=== PATIENT | male | born 1950 | race Caucasian/White ===

== ENCOUNTER 2020-07-11 09:22 | Outpatient (REF) | payer SELFPAY ==
[2020-07-11 11:32] LABS: Glucose Urine UA NEG (NEG); Leukocyte Esterase Urine NEG (NEG); Nitrite Urine NEG (NEG); PH 5.5 (5.0-8.0); Specific Gravity - Urine 1.025 (1.005-1.025); Urine Blood NEG (NEG); Urine Ketones NEG (NEG); Urine Protein NEG (NEG-TRACE)
[2020-07-11 11:43] LABS: Basophils Absolute Auto 0.1 X10*3/uL (0.0-0.2); Basophils Percent Auto 0.8 % (0-2); Eosinophils Absolute Auto 0.1 X10*3/uL (0.0-0.4); Eosinophils Percent Auto 1.7 % (0-4); Hematocrit 47.4 % (42-52); Hemoglobin 15.2 g/dl (14.0-18.0); Imm Gran Abs Auto 0.02 X10*3/uL (0.00-0.03); Imm Gran Pct Auto 0.3 % (0.0-0.4); Lymphocytes Absolute Auto 3.7 X10*3/uL (1.2-4.9); Lymphocytes Percent Auto 56.8 % (20-40); MANUAL DIFF FLAG SCAN; Mean Corpuscular HGB Conc 32.1 g/dl (31.0-36.0); Mean Corpuscular Volume 90.5 fL (80-98); Mean Platelet Volume 10.6 fL (9.4-12.4); Monocytes Absolute Auto 0.4 X10*3/uL (0.1-1.2); Monocytes Percent Auto 5.8 % (2-11); Neutrophils Absolute Auto 2.3 X10*3/uL (2.0-8.3); Neutrophils Percent Auto 34.6 % (45-73); Platelet Count 187 X10*3/uL (160-400); Red Blood Count 5.24 X10*6/uL (4.60-5.80); Red Cell Distribution Width 13.5 % (11.0-16.0); SCAN SMEAR FLAG 1; White Blood Count 6.6 X10*3/uL (4.8-10.8)
[2020-07-11 11:52] LABS: Appearance Urine CLEAR; Color Urine YELLOW
[2020-07-11 12:07] LABS: Alanine Aminotransferase 34 U/L (0-40); Albumin Level 4.2 g/dL (3.5-5.0); Alkaline Phosphatase 61 U/L (39-117); Anion Gap 14 (12-20); Aspartate Amino Transferase 20 U/L (5-37); Bilirubin Total 0.4 mg/dL (0.0-1.0); Blood Urea Nitrogen 19 mg/dL (9-16); Calcium 8.9 mg/dL (8.4-10.2); Carbon Dioxide 24 mmol/L (22-29); Chloride 109 mmol/L (96-108); Cholesterol 188 mg/dL; Estimated Glomerular Filt Rate > 60; Glucose Fasting 105 mg/dL (60-99); HDL Cholesterol 39 mg/dL; LDL Cholesterol Calculated 129 mg/dl; Potassium 4.4 mmol/L (3.3-5.1); Sodium 143 mmol/L (135-145); Triglycerides 102 mg/dL
[2020-07-11 12:20] LABS: SLIDE REVIEW VERIFIED
[2020-07-11 12:24] LABS: RBC Urine 0 /HPF (0); WBC Urine 0 /HPF (0-4)
[2020-07-11 12:33] LABS: Prostate Specific Antigen Scr 6.08 ng/mL (<0.05-4.0)
== END 2020-07-11 09:23 | disposition home or self-care (01) ==
LOC: HO.HMGCLDS 09:22
PROVIDERS: PCP Internal Medicine; Visit Provider Internal Medicine
DX: Z00.00 Encounter for general adult medical examination without abnormal findings (principal); Z12.5 Encounter for screening for malignant neoplasm of prostate
CPT/HCPCS: 36415; 80053; 80061; 81001; 84153; 85025

== ENCOUNTER → 2020-09-01 13:54 | Outpatient (BNVA) | payer OTHER, SELFPAY | PROVIDERS: PCP Internal Medicine; Visit Provider Urology | DX: R97.20 Elevated prostate specific antigen [PSA] (principal); N40.0 Benign prostatic hyperplasia without lower urinary tract symptoms; M54.30 Sciatica, unspecified side | CPT/HCPCS: 99202 ==

== ENCOUNTER 2020-09-06 14:14 | Outpatient (REF) | payer OTHER, SELFPAY ==
--- NOTE | ~2020-09-06 | US_ITS ---
EXAMINATION: US PELVIS LIMITED (BLADDER) CLINICAL INFORMATION: Weak urinary stream. Increased PSA, BPH. COMPARISON: None. TECHNIQUE: Real-time imaging of the bladder. FINDINGS: BLADDER: Well distended and normal. Bilateral ureteral jets are demonstrated. Prevoid bladder volume is 348 mL. Postvoid bladder volume is 47 mL. There is a trabeculated bladder wall appearance. PROSTATE: Solid prostate gland is enlarged measuring 4.0 x 3.9 x 4.1 cm. US/US bladder IMPRESSION: Small postvoid residual bladder volume. The bladder wall is trabeculated likely secondary to moderate prostate enlargement. Normal bilateral ureteral jets are seen.
== END 2020-09-06 14:15 | disposition home or self-care (01) ==
LOC: HO.HMGCX 14:14
PROVIDERS: PCP Internal Medicine; Visit Provider Urology
DX: N40.1 Benign prostatic hyperplasia with lower urinary tract symptoms (principal); R39.12 Poor urinary stream
CPT/HCPCS: 76857

== ENCOUNTER 2021-04-02 08:59 | Inpatient (IN) | payer MEDICARE, OTHER, SELFPAY ==
[2021-04-02] VITALS (15 sets, daily range): BP systolic 132–186; BP diastolic 68–100; PULSE 62–120; RESP 14–31; TEMP 36.8–38; O2SAT 90–98; BMI 34.8
--- NOTE | 2021-04-02 | ECG_ITS ---
Test Reason : stroke Blood Pressure : / mmHG Vent. Rate : 116 BPM Atrial Rate : 088 BPM P-R Int : 246 ms QRS Dur : 090 ms QT Int : 390 ms P-R-T Axes : 056 -07 -39 degrees QTc Int : 542 ms Sinus rhythm with frequent PVCs and run of VT towards the end of tracing Anteroseptal infarct (cited on or before 02-APR-2021) Prolonged QT Abnormal ECG When compared with ECG of 02-APR-2021 09:36, No significant changes seen Referred By: Michael Patel Electronically Signed By:Darwin Valdez
--- NOTE | ~2021-04-02 | CT_ITS ---
EXAMINATION: CTA OF THE HEAD AND NECK CLINICAL INFORMATION: Left-sided weakness. COMPARISON: Head CT dated 04/02/2021. TECHNIQUE: Test bolus sequences followed by intravenous administration 70 mL of Omnipaque 350. Helical imaging was performed in the axial plane from the mediastinum to the skull vertex. Delayed postcontrast imaging of the head was also performed. The data was processed at the x ray technologist's workstation for generation of MIP sequences. Three-dimensional volume rendered reformatted images were also generated at an offline 3-D workstation. Stenoses are assessed in accordance with NASCET criteria unless otherwise indicated. This CT examination was performed using dose optimization techniques as appropriate, variously including the following: *Automated exposure control *Adjustment of mA and/or kV according to patient size (this includes techniques or standardized protocols for targeted exams where dose is matched to indication/reason for exam; i.e. extremities or head) *Use of iterative reconstruction technique DLP: 2452 mGy-cm. FINDINGS: CT head: There is a chronic-appearing infarct in the anterolateral left frontal lobe at the mid to high convexity with encephalomalacia. A small area of low-density change in the right frontal centrum semiovale represents a focal age-indeterminate infarct. Small scattered lacunar infarcts in the external capsules. Mild chronic white matter microangiopathy. There is no evidence of an acute intracranial hemorrhage. No abnormal mass effect or midline shift is seen. No extra-axial fluid collections are identified. Generalized parenchymal volume loss without evidence of hydrocephalus. There is no abnormal enhancement. The osseous structures and soft tissues are normal. The mastoid air cells and visualized portions of the paranasal sinuses are well aerated. CTA neck: The imaged aortic arch and origins of the great vessels are normal. The common carotid arteries are widely patent. The carotid bifurcations are patent with mild atherosclerotic wall calcifications at the origin of the left ICA. The cervical internal carotid arteries are otherwise normal. The vertebral arteries opacify normally and are of normal caliber. Multinodular thyroid gland evident with mild asymmetric enlargement of the left thyroid lobe. Moderate multilevel cervical spondylosis noted with a rightward spinal curvature. The imaged portions of the lungs are clear. CTA head: The intradural vertebral arteries and basilar artery are normal. The posterior cerebral arteries are widely patent. The internal carotid arteries are of normal caliber. 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 The INGE and MCA vascular complexes bilaterally are otherwise normal. The venous sinuses opacify normally. CT/CT angio head neck stroke IMPRESSION: No vessel occlusion or significant stenosis in the cervical or intracranial vasculature. 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 Chronic-appearing infarct in the anterolateral left frontal lobe. Age-indeterminate focal infarct in the right frontal centrum semiovale. No abnormal enhancement. Moderate cervical spondylosis. Multinodular thyroid gland with mild enlargement of the left thyroid lobe. Imaging findings reported to Dr. Patel at 10:07 AM on 04/02/2021.
--- NOTE | ~2021-04-02 | CT_ITS ---
EXAMINATION: CT CERVICAL SPINE WITHOUT CONTRAST CLINICAL INFORMATION: Neck pain after fall COMPARISON: None TECHNIQUE: Helical imaging of the cervical spine was performed in the axial plane with generation of sagittal and coronal reformatted This CT examination was performed using dose optimization techniques as appropriate, variously including the following: *Automated exposure control *Adjustment of mA and/or kV according to patient size (this includes techniques or standardized protocols for targeted exams where dose is matched to indication/reason for exam; i.e. extremities or head) *Use of iterative reconstruction technique DLP: 732 mGy-cm FINDINGS: There is no acute fracture or dislocation. Vertebral body heights are maintained. There is diffuse intervertebral disc space narrowing, most prominent at C5-C6 and C6-C7. There are endplate osteophytes at all levels of the cervical spine. There is diffuse facet arthropathy, most prominent at C3-C4. The paravertebral soft tissues are normal. The lung apices are clear. CT/CT cervical spine wo con IMPRESSION: Moderate degenerative changes of the cervical spine. No acute fracture or dislocation.
--- NOTE | ~2021-04-02 | XR_ITS ---
EXAMINATION: XR CHEST CLINICAL INFORMATION: Stroke. COMPARISON: None TECHNIQUE: Frontal view of the chest was obtained. FINDINGS: No significant abnormality is noted involving the heart, lungs, mediastinum, bony thorax or soft tissues. XR/XR chest 1V IMPRESSION: Unremarkable examination.
--- NOTE | ~2021-04-02 | MR_ITS ---
EXAMINATION: MR BRAIN WITHOUT CONTRAST CLINICAL INFORMATION: Cerebrovascular accident status post TPA. COMPARISON: CTA head and neck from 04/02/2021. TECHNIQUE: MRI of the brain was obtained using routine sequences without contrast. FINDINGS: There are regions of restricted diffusion in the right MCA territory involving the right insula, superior aspect of the right temporal lobe, and right frontoparietal lobes including the lateral aspects of the precentral and postcentral gyri. Associated T2 FLAIR hyperintensity. No evidence of acute hemorrhagic products on heme-sensitive imaging. Region of chronic encephalomalacia in the lateral left frontal lobe. Chronic lacunar infarcts of the anterior body of the corpus callosum and the right cerebral hemisphere. Scattered periventricular and deep white matter T2 FLAIR hyperintensities consistent with mild underlying microangiopathy. Proportional prominence of the ventricles and sulcal spaces without evidence of obstructive hydrocephalus. No abnormal mass effect. No midline shift. Normal appearance of the pituitary gland. Normal positioning of the cerebellar tonsils. Normal arterial and venous vascular flow voids are present. Normal, homogeneous marrow signal. Mild mucosal thickening of the paranasal sinuses. Moderate leftward nasal septal deviation. No signal abnormalities within the mastoids. MR/MR head/brain wo con IMPRESSION: 1. Evolving acute infarct of the right MCA territory involving the right insula and right frontal, temporal, and parietal lobes. No evidence of hemorrhagic conversion. 2. Region of chronic encephalomalacia in the left frontal lobe. Chronic lacunar infarcts of the corpus callosum and right cerebellar hemisphere. Mild underlying microangiopathy and generalized cerebral volume loss.
--- NOTE | ~2021-04-02 | NM_ITS ---
Myocardial perfusion study Indication: VT to evaluate for myocardial ischemia Technique: The patient was brought in for a Lexiscan perfusion study on 04/06/2021. Patient performed low-level exercise and was injected 0.4 mg of Lexiscan intravenously. Within a minute of injection, 30 mCi of sestamibi was given intravenously. Images were obtained using the SPECT gamma camera interlaced with the gating device. Images were obtained in supine position. Resting perfusion study was performed on 04/07/2021. Patient was administered 30 mCi of sestamibi intravenously at rest. Images were then obtained in supine position. Images obtained with and without CT attenuation. Total DLP 109 m Images were processed with the software and compared side to side in short axis, horizontal long axis and vertical long axis views. Findings: The stress perfusion study showed non attenuated images show mildly reduced uptake in the basal inferolateral and basal inferior wall of the LV myocardium. Remainder of the LV myocardium is normally perfused. Expected images show normal uptake of radiotracer in all segments of LV myocardium.. The gated study shows normal LV systolic function with calculated LVEF of 66%. LV cavity is normal in size. The gated study shows normal systolic wall thickening and contraction of segments. Resting study shows both attenuated and not attenuated corrected images show normal uptake of radiotracer in all segments of LV myocardium.. Gating at rest reveals normal systolic wall motion with ejection fraction at 57%. The findings are consistent with likely normal myocardial perfusion. NM/NM michael perf SPECT rest & str Impression: 1. Myocardial perfusion imaging study shows likely normal myocardial perfusion 2. Gated LVEF is 66% 3. Transient ischemic dilatation not present EKG is nondiagnostic for ischemia
--- NOTE | ~2021-04-02 | CT_ITS ---
EXAMINATION: CT HEAD WITHOUT CONTRAST (STROKE PROTOCOL) CLINICAL INFORMATION: Stroke protocol. COMPARISON: None TECHNIQUE: Contiguous axial imaging was performed from the skull base to vertex without intravenous administration of contrast. This CT examination was performed using dose optimization techniques as appropriate, variously including the following: *Automated exposure control *Adjustment of mA and/or kV according to patient size (this includes techniques or standardized protocols for targeted exams where dose is matched to indication/reason for exam; i.e. extremities or head) *Use of iterative reconstruction technique DLP: 714 2 mGy-cm FINDINGS: There is no intracranial hemorrhage, hematoma, or extra-axial fluid collection. The ventricles are normal in size. There is no hydrocephalus, edema, or mass effect. Linear hypodense lesion is noted at the right periventricular white matter (27:6). Larger linear hypodensity involving both cortex as well as the white matter is also noted at the left frontal lobe (25:6), consistent with infarction of indeterminate age. The calvarium appears intact. There is no pneumocephalus or orbital emphysema. The visualized sinuses and middle ears and mastoid air cells show no significant mucosal thickening. There are no air-fluid levels. CT/CT head for stroke IMPRESSION: 1. No CT evidence of any acute intracranial hemorrhage. 2. Linear hypodense lesion is noted at the right periventricular white matter, of indeterminate etiology. 3. Large hypodensity involving both cortex as well as the white matter is also noted at the left frontal lobe, consistent with infarction of indeterminate age. There are no prior studies available for comparison. This critical result was discussed with Dr. Patel at 9:17 AM on 04/02/2021. It was ascertained that the content and urgency of the report was understood at the time of direct communication.
--- NOTE | 2021-04-02 09:04 | ECG_ITS ---
Test Reason : STROKE Blood Pressure : / mmHG Vent. Rate : 133 BPM Atrial Rate : 090 BPM P-R Int : 176 ms QRS Dur : 090 ms QT Int : 374 ms P-R-T Axes : 060 025 -16 degrees QTc Int : 556 ms Sinus rhythm alternating with runs of ventricular tachycardia Prolonged QT Abnormal ECG No previous ECGs available Referred By: Michael Patel Electronically Signed By:Darwin Valdez
--- NOTE | 2021-04-02 09:17 | PC.NURSE ---
@ 09:15 DR FRANKLIN REQUESTS CALL OUT TO THE [facility] STROKE TEAM/NEURO INTERVENTION SATURNINO ANSWERS, TAKES PT INFO, TAKES CALL BACK NUMBER AND SAYS SHE WILL CALL US BACK
--- NOTE | 2021-04-02 09:20 | PC.NURSE ---
@ 09:20 RETURN CALL FROM WILMAN OF [facility] PT TX LINE ASKING TO SPEAK WITH DR RIGOBERTO FRANKLIN TAKES OVER CALL RIGHT AWAY
[2021-04-02 09:21] LABS: MANUAL DIFF FLAG NO
[2021-04-02 09:23] LABS: Hemoglobin 15.5 g/dl (14.0-18.0); SCAN SMEAR FLAG 1
[2021-04-02 09:24] LABS: INTERNATIONAL NORM RATIO 1.1 (0.9-1.1)
--- NOTE | 2021-04-02 09:25 | PC.NURSE ---
@ 3803 RETURN CALL FROM EDWINA OF THE [facility] PT TX LINE WITH ACCEPTING MD DR RUIZ IS ACCEPTING THIS PT TO THE [facility] ER DR FRANKLIN ALREADY AWARE OF THIS
[2021-04-02 09:27] LABS: Partial Thromboplastin Time 28.5 SEC (24.1-38.0)
[2021-04-02 09:30] LABS: Basophils Absolute Auto 0.1 X10*3/uL (0.0-0.2); Basophils Percent Auto 0.5 % (0-2); Eosinophils Absolute Auto 0.2 X10*3/uL (0.0-0.4); Eosinophils Percent Auto 1.4 % (0-4); Hematocrit 45.8 % (42.0-52.0); Imm Gran Abs Auto 0.02 X10*3/uL (0.00-0.03); Imm Gran Pct Auto 0.2 % (0.0-0.4); Mean Corpuscular HGB Conc 33.8 g/dl (31.0-36.0); Mean Corpuscular Volume 88.8 fL (80.0-98.0); Monocytes Absolute Auto 0.6 X10*3/uL (0.1-1.2); Monocytes Percent Auto 5.6 % (2-11); Neutrophils Percent Auto 27.1 % (45-73); Platelet Count 183 X10*3/uL (160-400); Red Blood Count 5.16 X10*6/uL (4.60-5.80); Red Cell Distribution Width 12.9 % (11.0-16.0)
[2021-04-02 09:33] LABS: Lymphocytes Absolute Auto 7.2 X10*3/uL (1.2-4.9); Stroke Lab Use COMPLETE
--- NOTE | 2021-04-02 09:38 | PC.NURSE ---
@ 09:37 DR FRANKLIN REQUESTS CALL OUT TO [facility] [place] NEUROLOGY SERVICE ANSWERS, MADE AWARE OF STROKE PROTOCOL , TAKES PT INFO,HOSPITAL INFO AND SAYS THEY WILL PAGE THE ONCALL
[2021-04-02 09:42] LABS: Alanine Aminotransferase 22 U/L (0-40); Alkaline Phosphatase 60 U/L (39-117); Anion Gap 14 (12-20); Aspartate Amino Transferase 14 U/L (5-37); Bilirubin Total 0.9 mg/dL (0.0-1.0); Blood Urea Nitrogen 18 mg/dL (9-16); Calcium 9.2 mg/dL (8.4-10.2); Carbon Dioxide 22 mmol/L (22-29); Chloride 109 mmol/L (96-108); Estimated Glomerular Filt Rate 50; Glucose Random 134 mg/dL (60-115); Lymphocytes Percent Auto 65.2 % (20-40); Sodium 141 mmol/L (135-145); Total Protein 6.8 g/dL (6.5-8.0)
[2021-04-02 09:45] LABS: Troponin-I High Sensitivity 8.4 ng/L (<3.5-35.0)
--- NOTE | 2021-04-02 09:53 | PC.NURSE ---
@09:52 patient and family refuse transfer to [facility] and sign emtdarrick/king page [address] barbosa
--- NOTE | 2021-04-02 10:11 | PC.NURSE ---
[facility] PT TX LINE CALL TO MAKE THEM AWARE OF PTS REFUSAL TO BE TX TO [facility] @ THIS TIME EDWINA ANSWERS AND SAYS SHE WILL MAKE THE ACCEPTING MD AWARE ON HER END
--- NOTE | 2021-04-02 10:14 | PC.NURSE ---
Pt presented to ed with stroke, ct done labs done iv established, tpa started pt with episodes of v tach pt refuses to go to [facility], intensiviest and cardiology involved
[2021-04-02] MEDS: iohexoL 350 MG/ML 100 ML INFUS..BTL 70 ML IV (10:18)
--- NOTE | 2021-04-02 10:28 | ED_ITS ---
HPI - Neuro Symptoms/Deficit General Chief Complaint: Stroke Stated Complaint: STROKE ALERT,FALL IN SHOWER,AMS PER Time Seen by Provider: 04/02/21 09:02 Source: family and EMS Mode of arrival: EMS History of Present Illness HPI Narrative: This is a 71 years old healthy patient who about 08:00 o'clock in the morning was getting ready for [facility] fell and was aphasic with left-sided weakness, his sister called 911 and was transported the by the EMS. Onset (ago): minute(s) (45) Timing confirmed by: family member (sister) Location: speech, right face, left arm, left leg and ataxia History of same: Yes Severity: severe Quality: weak Relieving factors: none Exacerbating factors: none Context: sudden onset Associated symptoms: denies other symptoms Related Data Home Medications Medication Instructions Recorded Confirmed aspirin 81 mg capsule 81 mg PO DAILY 04/02/21 04/02/21 Previous Rx's Medication Instructions Recorded finasteride 5 mg tablet 5 mg PO DAILY 90 Days #90 tab 09/01/20 Allergies Allergy/AdvReac Type Severity Reaction Status Date / Time No Known Allergies Allergy Verified 09/01/20 13:58 Review of Systems Verdana 4l Constitutional: Verdana 4d Constitutional: Verdana 4d Verdana 4d Reports no additional constitutional complaints Verdana 4l Eyes: Verdana 4d Verdana 4d Eyes: Verdana 4d Reports no additional eye complaints Verdana 4l Cardiovascular: Verdana 4d Cardiovascular: Verdana 4d Verdana 4d Reports no additional cardiovascular complaints Verdana 4l Respiratory: Verdana 4d Verdana 4d Respiratory: Verdana 4d Reports no additional respiratory complaints Verdana 4l Musculoskeletal: Verdana 4d Musculoskeletal: Verdana 4d Verdana 4d Reports no additional musculoskeletal complaints [facility] Past Medical History Medical History Annual physical exam Elevated PSA Sciatica Family History Family History Father No problems noted. Mother Stroke Social History Social History Household Members: Family Housing: House Do you presently have visiting nurse or other home services: No Alcohol intake: current Alcohol intake frequency: holidays/special occasions only Patient Tobacco Use Status: Former Tobacco user Tobacco use type: Cigarette e-Cigarette/Vaping Use: Former Use Physical Exam Verdana 4l Vital Signs: Verdana 4d Verdana 4d Vital Signs: Verdana 4d Verdana 4Bd Last Vital Signs Verdana 4d Education Specialist New 4d Education Specialist New 4d Temp 98.2 F 04/02/21 09:45 Education Specialist New 4d Pulse 82 04/02/21 14:00 Education Specialist New 4d Resp 16 04/02/21 14:00 BP 186/90 H 04/02/21 14:00 Pulse Ox 94 04/02/21 14:00 BMI result Body Mass Index 34.8 Const: General: cooperative HENMT: Other: facial droop Ears: hearing grossly normal bilaterally General nose exam: Normal external nose present Throat: Yes posterior oropharynx normal Neck: Neck: Yes normal visual inspection, Yes full ROM and Yes no lymphadenopathy Thyroid: Thyroid normal Chest: Chest palpation & inspection: normal inspection of the chest Resp: Effort & Inspection: normal respiratory effort Cardio: Jugular venous distension: no JVD Rate: regular rate Rhythm: regular rhythm GI: Inspection: Yes normal to inspection Palpation (GI): Soft to palpation, not firm, nontender and no guarding Percussion: Yes normal to percussion Skin: General skin exam: no rashes or lesions noted Neuro: Other: Rt gaze, left hemyparesis ,moderate aphasia Extrem: Other: abrasion dorsal aspect left thumb noted with skin tear Course Course Course Narrative: I discussed with the patient and sees the risk benefit of tPA, he is within the window, patient gave me verbal consent for tPA ;tPA was infused, I think the fall is relative risk no absolute contraindication in the absence of bleed.In this case the benefit will outweight the risks Reevaluation(s) Reevaluation #1: On the monitor he was noted to be in ventricular tachycardia, this was discussed with Dr. Key bedside. For now we will hold meds per Dr Key [facility] - Neuro Symptoms/Deficit Lab Data Result diagrams: 04/02/21 09:15 04/02/21 09:15 Labs: Lab Results 04/02/21 04/02/21 04/02/21 Range/Units 09:15 09:15 09:15 WBC 11.0 H (4.8-10.8) X10*3/uL RBC 5.16 (4.60-5.80) X10*6/uL Hgb 15.5 (14.0-18.0) g/dl Hct 45.8 (42.0-52.0) % MCV 88.8 (80.0-98.0) fL MCH 30.0 (27.0-33.0) pg MCHC 33.8 (31.0-36.0) g/dl RDW 12.9 (11.0-16.0) % Plt Count 183 (160-400) X10*3/uL MPV 10.0 (9.4-12.4) fL Immature Gran % (Auto) 0.2 (0.0-0.4) % Neut % (Auto) 27.1 L (45-73) % Lymph % (Auto) 65.2 H (20-40) % Barron % (Auto) 5.6 (2-11) % Eos % (Auto) 1.4 (0-4) % Baso % (Auto) 0.5 (0-2) % Lymph # (Auto) 7.2 H (1.2-4.9) X10*3/uL Barron # (Auto) 0.6 (0.1-1.2) X10*3/uL Eos # (Auto) 0.2 (0.0-0.4) X10*3/uL Baso # (Auto) 0.1 (0.0-0.2) X10*3/uL Abs Immat Gran (auto) 0.02 (0.00-0.03) X10*3/uL Absolute Neuts (auto) 3.0 (2.0-8.3) x10*3/uL Absolute Nucleated RBC 0.000 (0.0-0.012) X10*3/uL Nucleated RBC % (auto) 0.0 (0.0-0.2) /100WBC PT 12.0 (9.9-13.0) SEC INR 1.1 (0.9-1.1) APTT 28.5 (24.1-38.0) SEC Sodium 141 (135-145) mmol/L Potassium 4.0 (3.3-5.1) mmol/L Chloride 109 H (96-108) mmol/L Carbon Dioxide 22 (22-29) mmol/L Anion Gap 14 (12-20) BUN 18 H (9-16) mg/dL Creatinine 1.40 (0.5-1.4) mg/dL Estim Creat Clear Calc TNP Estimated GFR 50 Random Glucose 134 H (60-115) mg/dL Calcium 9.2 (8.4-10.2) mg/dL Magnesium 1.9 (1.6-2.6) mg/dL Total Bilirubin 0.9 (0.0-1.0) mg/dL AST 14 (5-37) U/L ALT 22 (0-40) U/L Alkaline Phosphatase 60 (39-117) U/L Troponin I High Sens (<3.5-35.0) ng/L Total Protein 6.8 (6.5-8.0) g/dL Albumin 4.0 (3.5-5.0) g/dL 04/02/21 Range/Units 09:15 WBC (4.8-10.8) X10*3/uL RBC (4.60-5.80) X10*6/uL Hgb (14.0-18.0) g/dl Hct (42.0-52.0) % MCV (80.0-98.0) fL MCH (27.0-33.0) pg MCHC (31.0-36.0) g/dl RDW (11.0-16.0) % Plt Count (160-400) X10*3/uL MPV (9.4-12.4) fL Immature Gran % (Auto) (0.0-0.4) % Neut % (Auto) (45-73) % Lymph % (Auto) (20-40) % Barron % (Auto) (2-11) % Eos % (Auto) (0-4) % Baso % (Auto) (0-2) % Lymph # (Auto) (1.2-4.9) X10*3/uL Barron # (Auto) (0.1-1.2) X10*3/uL Eos # (Auto) (0.0-0.4) X10*3/uL Baso # (Auto) (0.0-0.2) X10*3/uL Abs Immat Gran (auto) (0.00-0.03) X10*3/uL Absolute Neuts (auto) (2.0-8.3) x10*3/uL Absolute Nucleated RBC (0.0-0.012) X10*3/uL Nucleated RBC % (auto) (0.0-0.2) /100WBC PT (9.9-13.0) SEC INR (0.9-1.1) APTT (24.1-38.0) SEC Sodium (135-145) mmol/L Potassium (3.3-5.1) mmol/L Chloride (96-108) mmol/L Carbon Dioxide (22-29) mmol/L Anion Gap (12-20) BUN (9-16) mg/dL Creatinine (0.5-1.4) mg/dL Estim Creat Clear Calc Estimated GFR Random Glucose (60-115) mg/dL Calcium (8.4-10.2) mg/dL Magnesium (1.6-2.6) mg/dL Total Bilirubin (0.0-1.0) mg/dL AST (5-37) U/L ALT (0-40) U/L Alkaline Phosphatase (39-117) U/L Troponin I High Sens 8.4 (<3.5-35.0) ng/L Total Protein (6.5-8.0) g/dL Albumin (3.5-5.0) g/dL Imaging Data CT scan - head: Radiologist's impression: white matter is also noted at the left frontal lobe (25:6), consistent with infarction of indeterminate age. ?The calvarium appears intact. There is no pneumocephalus or orbital emphysema.? The visualized sinuses and middle ears and mastoid air cells show no significant mucosal thickening. There are no air-fluid levels. CT/CT head for stroke IMPRESSION: ? 1. No CT evidence of any acute intracranial hemorrhage. 2. Linear hypodense lesion is noted at the right periventricular white matter, of indeterminate etiology. 3. Large hypodensity involving both cortex as well as the white matter is also noted at the left frontal lobe, consistent with infarction of indeterminate age. There are no prior studies available for comparison. ? This critical result was discussed with Dr. Patel at 9:17 AM on 04/02/2021. It was ascertained that the content and urgency of the report was understood at the time of direct communication. Dictated By: ROBBY KEATING MD Signed By: <Electronically signed by ROBBY KEATING MD in OV> 04/02/21921 DD/ 0 TD/TT:? Small Order Cutter: DOROTA ECG Data Attestation: I personally reviewed and interpreted this ECG as follows: Pacemaker model: Ainus with 8 beats of Vtach non sustained NIH Stroke Scale Level of Consciousness: Alert Level of Consciousness Questions: Answers both questions correctly Level of Consciousness Commands: Performs both tasks correctly Best Gaze: Forced deviation Visual: Complete hemianopia Facial Palsy: Complete paralysis Motor Arm (Right): No drift Motor Arm (Left): Drift Motor Leg (Right): No drift Motor Leg (Left): Drift Limb Ataxia: Present in one limb Sensory: Mild to moderate sensory loss Best Language: Mild to moderate aphasia Dysarthia: Mild to moderate dysarthria Extinction and Inattention: Visual, tactile, auditory, spatial, or personal inattention Score: 14 Critical Care Time Critical Care Time Critical Care Time: Yes Total Critical Care Time: 60 Attestation: TPA Administrations speaking with family consultat,ICU attending Discharge Plan Discharge Clinical Impression: Cerebrovascular accident, Ventricular tachycardia Patient Disposition: Admitted As Inpatient Interventions: Admission Worksheet (ED) Last Done: 04/02/21 14:00 Discharge Date/Time: 04/02/21 14:01
--- NOTE | 2021-04-02 10:32 | PC.NURSE ---
tpa complete, pt appears to have neuro improvement, remains to have episodes of v tach
--- NOTE | 2021-04-02 10:52 | PHA.MEDREC ---
Pharmacy Consult ? Medication Reconciliation Pharmacy has completed the medication reconciliation. Spoke with sister and patient. He hasn't taken medications in a long time. Last filled 09/01/20 of 90 days
[2021-04-02 10:53] LABS: Magnesium 1.9 mg/dL (1.6-2.6)
--- NOTE | 2021-04-02 11:23 | P.HPCC_ITS ---
History of Present Illness Date of Service: 04/02/21 Attending physician on admission: Soledad Key Chief Complaint: Fall with weakness 71-year-old male nonhypertensive nondiabetic preparing for latter-day this morning suddenly fell noted to have facial asymmetry left-sided weakness and was aphasic brought to the hospital within a good time frame work CT scan was negative and the case was discussed with Neurology DrBenjamin In other words Dr. Blanchard and was decided to go ahead and give him tPA despite the minor head trauma There is a question of a left-sided field cut he has got the eye deviation towards the right left upper and left lower extremity weakness are are associated NIH score but at least 13 and by our approximation the no seems to be a fair sized territory yet on the CTA nothing was seen and tracing this all back down to the to the aortic root there is no evidence of of dissection Of course placed on the monitor and early asymptomatic we note that he is having prolonged runs of nonsustained ventricular tachycardia very frequently lasting up to approximately 6 seconds at a time with rates of about 150 give her take clearly the P-wave sequence marches through and there there is a fusion beat or 2 indicating that this is did indeed V-tach no chest discomfort is associated with any of this and a bedside echo that I had done shows globally normal systolic wall motion of the left ventricle without segmental wall motion abnormality and no primary valve or pericardial disease and his right heart appears to be normal as well He is not hypertrophic what needs to be ruled out of course is underlying ischemic disease but I do know if this is just simply serendipitous or if there is adeno truly some etiologic relationship appear between the nonsustained ventricular tachycardia and this CVA in evolution Review of Systems Verdana 4l Review of Systems: Yes all other systems are reviewed and Verdana 4d are negative [facility] Past Medical History Medical History Annual physical exam Elevated PSA Sciatica Family History Family History Father No problems noted. Mother Stroke Social History Social History Alcohol intake: current Alcohol intake frequency: holidays/special occasions only Advance Directives: No Advance Directives Information Provided: No Meds Allergies Allergy/AdvReac Type Severity Reaction Status Date / Time No Known Allergies Allergy Verified 09/01/20 13:58 Active Medications: Current Medications Dextrose (Dextrose 50 % 25 Gm/50 Ml Syringe) 25 gm IVPUSH Q30M PRN PRN Reason: Nursing Actions in Insulin Infusion Protocol Insulin Human Regular (Myxredlin) 100 unit in 100 mls @ 0 mls/hr IVCONT .Q0M CLAY; Protocol Lactated Ringer's (Lr) 1,000 mls @ 100 mls/hr IVCONT .Q10H CLAY Home Medications Medication Instructions Recorded Confirmed Last Taken Type aspirin 81 mg 81 mg PO DAILY 04/02/21 04/02/21 Unknown History capsule Physical Exam Verdana 4l Vital Signs: Verdana 4d Verdana 4d Vital Signs: Verdana 4d Verdana 4Bd Last Vital Signs Verdana 4d Material Manager New 4d Material Manager New 4d Temp 98.2 F 04/02/21 09:45 Material Manager New 4d Pulse 85 04/02/21 10:00 Material Manager New 4d Resp 16 04/02/21 10:00 BP 135/88 04/02/21 10:00 Pulse Ox 98 04/02/21 10:00 BMI result Body Mass Index 34.8 Vital signs stable and there are no ischemic ST-T changes on his EKG Improving weakness on the left side and some restored ability to communicate Lungs clear Abdomen soft no organomegaly No peripheral edema skin is intact no acrocyanosis Results Labs CBC and Chem 7: 04/02/21 09:15 04/02/21 09:15 Labs: Laboratory Results - last 24 hr 04/02/21 04/02/21 04/02/21 09:15 09:15 09:15 MCV 88.8 MCH 30.0 MCHC 33.8 RDW 12.9 Plt Count 183 MPV 10.0 Immature Gran % (Auto) 0.2 Neut % (Auto) 27.1 L Lymph % (Auto) 65.2 H Carson % (Auto) 5.6 Eos % (Auto) 1.4 Baso % (Auto) 0.5 Lymph # (Auto) 7.2 H Carson # (Auto) 0.6 Eos # (Auto) 0.2 Baso # (Auto) 0.1 Abs Immat Gran (auto) 0.02 Absolute Neuts (auto) 3.0 Absolute Nucleated RBC 0.000 Nucleated RBC % (auto) 0.0 PT 12.0 INR 1.1 APTT 28.5 Anion Gap 14 Estim Creat Clear Calc TNP Estimated GFR 50 Random Glucose 134 H Calcium 9.2 Magnesium 1.9 Total Bilirubin 0.9 AST 14 ALT 22 Alkaline Phosphatase 60 Total Protein 6.8 Albumin 4.0 Imaging Radiologist's Impressions: Impressions Head CT 04/02/21 09:11 IMPRESSION: 1. No CT evidence of any acute intracranial hemorrhage. 2. Linear hypodense lesion is noted at the right periventricular white matter, of indeterminate etiology. 3. Large hypodensity involving both cortex as well as the white matter is also noted at the left frontal lobe, consistent with infarction of indeterminate age. There are no prior studies available for comparison. This critical result was discussed with Dr. Patel at 9:17 AM on 04/02/2021. It was ascertained that the content and urgency of the report was understood at the time of direct communication. Head/Neck CTA 04/02/21 09:37 IMPRESSION: No vessel occlusion or significant stenosis in the cervical or intracranial vasculature. 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 Chronic-appearing infarct in the anterolateral left frontal lobe. Age-indeterminate focal infarct in the right frontal centrum semiovale. No abnormal enhancement. Moderate cervical spondylosis. Multinodular thyroid gland with mild enlargement of the left thyroid lobe. Imaging findings reported to Dr. Patel at 10:07 AM on 04/02/2021. Cervical Spine CT 04/02/21 10:09 IMPRESSION: Moderate degenerative changes of the cervical spine. No acute fracture or dislocation. Chest X-Ray 04/02/21 10:30 IMPRESSION: Unremarkable examination. Assessment and Plan (1) Cerebrovascular accident: Status: Acute (2) Ventricular tachycardia: Status: Acute (3) BPH (benign prostatic hyperplasia): Status: Acute (4) Elevated PSA: Status: Acute Plan Will have Cardiology involved in the morning to rule out underlying ischemic disease so we can prognosticate with a nonsustained V-tach If there is underlying ischemia than there is an anatomic derangement that certainly the note makes risk for sudden demise much higher but if there is no evidence of underlying etiologic disease and it certainly did in 0 improves the prognosis for the nonsustained V-tach and will probably reserve treatment for symptoms Will observe in the ICU status post tPA infusion
[2021-04-02 11:41] LABS: COVID-19 Test Negative (Negative)
[2021-04-02 12:00] LABS: Erythrocyte Sedimentation Rate 4 MM/HR (0-15)
--- NOTE | 2021-04-02 12:47 | P.CNNE_ITS ---
History of Present Illness Data of Consult Service Date: 04/02/21 Primary Care Provider: Yamilka Guallpa MD [facility] Reason for consult: stroke 71 years old man who came to hospital with acute onset of left-sided weakness. This was witnessed by family when he was [facility]. There was no acute headache nausea or vomiting. In emergency room he was evaluated and clinical impression was that he was suffering from a right frontal infarct with right gaze deviation and left hemiparesis. Language was intact. After workup he was treated with intravenous tPA and I see him after that. His strength or weakness has significantly changed with improvement. He still had right gaze deviation. he was Urdu speaking and into was performed with the help of his sister. He was not in any distress. Review of Systems Verdana 4l Review of Systems: Verdana 4d No recent cold or Verdana 4d flu-like illness headache or neck pain Verdana 4d PMFSH Past Medical History Medical History Annual physical exam Elevated PSA Sciatica Family History Family History Father No problems noted. Mother Stroke Social History Social History Alcohol intake: current Alcohol intake frequency: holidays/special occasions only Advance Directives: No Advance Directives Information Provided: No Meds Allergies Allergy/AdvReac Type Severity Reaction Status Date / Time No Known Allergies Allergy Verified 09/01/20 13:58 Active Medications: Current Medications Lactated Ringer's (Lr) 1,000 mls @ 100 mls/hr IVCONT .Q10H [facility] Home Medications Medication Instructions Recorded Confirmed Last Taken Type aspirin 81 mg 81 mg PO DAILY 04/02/21 04/02/21 Unknown History capsule Physical Exam Verdana 4l Vital Signs: Verdana 4d Verdana 4d Vital Signs: Verdana 4d Verdana 4Bd Last Vital Signs Verdana 4d Aluminum Shingle Roofer New 4d Aluminum Shingle Roofer New 4d Temp 98.2 F 04/02/21 09:45 Aluminum Shingle Roofer New 4d Pulse 85 04/02/21 10:00 Aluminum Shingle Roofer New 4d Resp 16 04/02/21 10:00 BP 135/88 04/02/21 10:00 Pulse Ox 98 04/02/21 10:00 BMI result Body Mass Index 34.8 Neuro: Other: alert and awake with normal spontaneity of speech fluency comprehension and slightly anxious affect. He was following commands and answering questions appropriately. Pupils were round reactive to light with the right gaze deviati on. Visual field or probably intact. There was minimal left-sided facial flatness. He was able to lift his arm against gravity up to 90 degrees and also leg. left plantar was equivocal and there was mild spasticity in left leg. Results Labs CBC & Chem 7: 04/02/21 09:15 04/02/21 09:15 Labs: Short CBC 04/02/21 Range/Units 09:15 WBC 11.0 H (4.8-10.8) X10*3/uL Hgb 15.5 (14.0-18.0) g/dl Hct 45.8 (42.0-52.0) % Plt Count 183 (160-400) X10*3/uL BMP 04/02/21 09:15 Sodium 141 Potassium 4.0 Chloride 109 H Carbon Dioxide 22 BUN 18 H Creatinine 1.40 Calcium 9.2 Liver Function 04/02/21 Range/Units 09:15 Total Bilirubin 0.9 (0.0-1.0) mg/dL AST 14 (5-37) U/L ALT 22 (0-40) U/L Alkaline Phosphatase 60 (39-117) U/L Albumin 4.0 (3.5-5.0) g/dL His noncontrast head CT revealed a chronic left frontal wedge-shaped embolic looking infarct but no definite pathology otherwise. There was suggestion of hyperdensity in right M2 segment. CTA of brain revealed at he knew a saldana of signal and right M2. Right M1 area was slightly prominent and radiologist has suggested 2 mm aneurysm in that area. His EKG revealed ventricular arrhythmia. Assessment and Plan (1) Cerebrovascular accident: Status: Acute 71 years old man with acute onset of left hemiparesis appropriately treated with intravenous tPA with clinical diagnosis of ischemic infarction. His EKG revealed arrhythmias and likely cause of stroke was cardiac source of embolism as he has a chronic left frontal small embolic looking infarct. At this time my recommendation is admission to ICU with tPA protocol and blood pressure management. Blood thinners are avoided for 24 hours but after that I would recommend starting him on anticoagulation but no IV heparin. Cardiology consultation is recommended. Physical therapy and occupational therapy consultations are also recommended. I recommend holding his blood pressure medicines are any medicine that could drop his blood pressure at this time including finasteride. An MRI of brain without contrast is also recommended, which can be done tomorrow. Procedures Date of Service Date of Service: 04/02/21
[2021-04-02] MEDS: Lactated Ringers 1,000 ML 100 ML IVCONT ×2 (13:06→22:38)
--- NOTE | 2021-04-02 17:12 | MHC.STROKE ---
Addendum entered by Oumou Hobbs RN 04/06/21 09:11: FREQUENT VITALS POST TPA-ALTEPLASE RECORDINGS ARE ON THE CHART INCLUDED WITH THE EKG READINGS DUE TO PATIENT HAVING VT. SEE THE SHEETS. SBP 120-160, DBP 80-100. MAP 90-120 RANGE. ALL VITALS DOCUMENTED. Addendum entered by Oumou Hobbs RN 04/03/21 10:48: 10:00 I MET WITH THE PATIENT AND HIS DAUGHTER ERIC THIS MORNING TO PROVIDE STROKE EDUCATION AND ANSWER THEIR QUESTIONS. THE PATIENT DOES UNDERSTAND SOME NICARAGUAN AND THE DAUGHTER DOES UNDERSTAND NICARAGUAN AND SHE ASSISTED WITH REINFORCING SOME OF THE EDUCATION NEEDED. I REVIEWED THE STROKE EDUCATION BOOKLET, WE DISCUSSED HIS INDIVIDUAL RISK FACTORS FOR STROKE, MEDICATIONS, WHY HE GOT TPA-ALTEPLASE, HIS VITAL SIGNS AND NEURO SIGNS. I USED DIAGRAMS AND PICTURES TO HELP EXPLAIN THE STROKE. I REVIEWED THE PLAN OF CARE. HE WILL BE GETTING AN MRI, THE FORM HAS BEEN FAXED TO MRI. I PERFORMED A NURSING SWALLOW SCREEN AND HE PASSED BUT HAD A SLIGHT COUGH AFTER DRINKING FROM THE CUP, NO WET VOICE. DR DRAPER CONSULTED SPEECH FOR DYSPHAGIA, AND APHASIA ASSESSMENT. HE HAS A SIGNIFICANT LEFT DROOP. HE IS COOPERATIVE AND AGREEABLE TO ALL STROKE INTERVENTIONS. WE DISCUSSED THE POSSIBLE NEED FOR ANTICOAGULATION. I ANSWERED ALL THEIR QUESTIONS. I WILL CONTINUE TO FOLLOW. Original Note: EMS PRE-NOTIFIED STROKE ALERT 04/02/21 AT 0854, ARRIVED 0859. EXAMINED BY DR FRANKLIN, ONSET OF LEFT SIDED WEAKNESS AN D FALL IN THE SHOWER, SYMPTOMS 0800, NIHSS = 14, RIGHT GAZE, LEFT HEMIPARESIS FACE, ARM, LEG, APHASIA/DYSARTHRIA, DECREASED SENSATION, NEGLECT. DIRECT TO CT ON EMS STRETCHER. STROKE PROTOCOL ACTIVATED. CT NO BLEED, CTA H/N, TPA ALTEPLASE 80MG ORDERED AT 0924, [id number] = 38 MINUTES, GREATER THAN 30 MINUTES DUE TO RECENT FALL AND CARE TEAM IS DETERMINING ELIGIBILITY, SEE DR DIAZ NOTE, FAILED NURSING SWALLOW SCREEN, NPO. FREQUENT VITAL OBTAINED AND PRINTOUT SHEET ATTACHED TO CHART. SPOKE WITH DR GONZALES REGARDING STROKE TPA GIVEN ORDERS. HE WILL HAVE HANG RIVERA COMPLETE ORDERS WHEN SHE COMES IN. RECOMMEND FREQUENT VITALS AND NEURO SIGNS PER PROTOCOL, ANY CHANGES REPEAT HEAD CT, MRI IN AM OR REPEAT CT HEAD IN AM, CARDIOLOGY CONSULT FOR ARRHYTHMIA, LIPID PANEL, CBC, NPO SPEECH CONSULT, REHAB ASSESSMENT PT,OT, VTE PROPHYLAXIS, STROKE EDUCATION, CASE MANAGEMENT TO ASSESS INSURANCE STATUS. I WILL CONTINUE TO FOLLOW.
[2021-04-02 20:30] LABS: Cholesterol 195 mg/dL; HDL Cholesterol 27 mg/dL; LDL Cholesterol Calculated 140 mg/dl; Triglycerides 142 mg/dL
[2021-04-03] VITALS (17 sets, daily range): BP systolic 118–160; BP diastolic 69–98; PULSE 54–95; RESP 13–35; TEMP 36.9–37.7; O2SAT 91–96; BMI 34.0
--- NOTE | 2021-04-03 | ECG_ITS ---
Test Reason : ekg changes Blood Pressure : / mmHG Vent. Rate : 065 BPM Atrial Rate : 065 BPM P-R Int : 214 ms QRS Dur : 094 ms QT Int : 394 ms P-R-T Axes : 005 -23 002 degrees QTc Int : 409 ms Sinus rhythm with 1st degree A-V block Septal infarct , age undetermined Abnormal ECG No previous ECGs available Referred By: Darwin Valdez Electronically Signed By:Darwin Valdez
[2021-04-03 05:41] LABS: Basophils Absolute Auto 0.1 X10*3/uL (0.0-0.2); Basophils Percent Auto 0.5 % (0-2); Eosinophils Absolute Auto 0.1 X10*3/uL (0.0-0.4); Eosinophils Percent Auto 0.7 % (0-4); Hematocrit 46.1 % (42.0-52.0); Hemoglobin 15.8 g/dl (14.0-18.0); Imm Gran Abs Auto 0.02 X10*3/uL (0.00-0.03); Imm Gran Pct Auto 0.2 % (0.0-0.4); Lymphocytes Absolute Auto 4.6 X10*3/uL (1.2-4.9); Lymphocytes Percent Auto 45.6 % (20-40); MANUAL DIFF FLAG SCAN; Mean Corpuscular HGB Conc 34.3 g/dl (31.0-36.0); Mean Corpuscular Hemoglobin 29.7 pg (27.0-33.0); Mean Corpuscular Volume 86.7 fL (80.0-98.0); Monocytes Absolute Auto 0.7 X10*3/uL (0.1-1.2); Monocytes Percent Auto 6.8 % (2-11); Neutrophils Absolute Auto 4.7 x10*3/uL (2.0-8.3); Neutrophils Percent Auto 46.2 % (45-73); Platelet Count 176 X10*3/uL (160-400); Red Blood Count 5.32 X10*6/uL (4.60-5.80); Red Cell Distribution Width 12.8 % (11.0-16.0); SCAN SMEAR FLAG 1; White Blood Count 10.1 X10*3/uL (4.8-10.8)
[2021-04-03 06:07] LABS: Anion Gap 13 (12-20); Blood Urea Nitrogen 14 mg/dL (9-16); Carbon Dioxide 23 mmol/L (22-29); Chloride 107 mmol/L (96-108); Creatinine Clr Calc Pharmacy 76.5; Estimated Glomerular Filt Rate > 60; Glucose Random 115 mg/dL (60-115); Phosphorus 3.4 mg/dL (2.7-4.5); Potassium 3.8 mmol/L (3.3-5.1); Sodium 139 mmol/L (135-145)
[2021-04-03 06:17] LABS: SLIDE REVIEW VERIFIED
--- NOTE | 2021-04-03 06:28 | PC.NURSE ---
CARE ASSUMED 23:15...AWAKE..ALERT..MAINLY NICARAGUAN SPEAKING...DENIES HEADACHE OR CHEST PAIN...PRASAD...LEFT ARM/HAND REMAIN WEAK BUT ABLE TO LIFT UP OFF BED...REPOSITIONS SELF IN BED...CONTINUES TO FAVOR GAZE TOWARDS THE RIGHT BUT IMPROVED GAZE TOWARDS LEFT...VSS...NSR HR 60'S..NO VENTRICULAR DYSRHYTHMIAS OVERNIGHT...NAPPING INTERMITTANTLY..NO COMPLAINTS
--- NOTE | 2021-04-03 10:06 | P.CONCA_ITS ---
History of Present Illness History of Present Illness Date of Service: 04/03/21 Requesting physician: Jesus Leija Chief complaint: Acute cva, wide complex tachycardia Narrative: 71-year-old gentleman who is presenting with CVA and received tPA. Clinically doing well but was noted to have recurrent runs of wide complex tachycardia on telemetry. He has been asymptomatic and does not call any symptoms. His [place]ian speaking and his sister act as broommaking supervisor. On questioning he said he does not get any chest discomfort when he is ambulating. If he walks a lot then he gets shortness of breath. No dizziness or syncope before. Telemetry reviewed which showed runs of wide complex tachycardia. There are some fusion beats noted on 1 of the strips as well as R on T. electrolytes are okay. Currently stable on telemetry. [facility] Past Medical History Medical History Annual physical exam Elevated PSA Sciatica Family History Family History Father No problems noted. Mother Stroke Social History Social History Household Members: Family Housing: House Do you presently have visiting nurse or other home services: No Alcohol intake: current Alcohol intake frequency: holidays/special occasions only Patient Tobacco Use Status: Former Tobacco user Tobacco use type: Cigarette e-Cigarette/Vaping Use: Former Use Meds Allergies Allergy/AdvReac Type Severity Reaction Status Date / Time No Known Allergies Allergy Verified 09/01/20 13:58 Active Medications: Current Medications Atorvastatin Calcium (Atorvastatin Calcium 40 Mg Tablet) 40 mg PO BEDTIME [facility] Home Medications Medication Instructions Recorded Confirmed Last Taken Type aspirin 81 mg 81 mg PO DAILY 04/02/21 04/02/21 Unknown History capsule Physical Exam Verdana 4l Vital Signs: Verdana 4d Verdana 4d Vital Signs: Verdana 4d Verdana 4Bd Last Vital Signs Verdana 4d Engineering Laboratory Technician New 4d Engineering Laboratory Technician New 4d Temp 98.8 F 04/03/21 08:00 Engineering Laboratory Technician New 4d Pulse 66 04/03/21 09:00 Engineering Laboratory Technician New 4d Resp 17 04/03/21 09:00 BP 129/87 04/03/21 09:00 Pulse Ox 92 04/03/21 09:00 BMI result Body Mass Index 34.0 GENERAL APPEARANCE: in no acute distress, pleasant. NECK: no carotid bruit, no jugular venous distention. SKIN: no suspicious lesions, warm and dry. HEART: no murmurs, regular rate and rhythm. LUNGS: clear to auscultation bilaterally. ABDOMEN: soft, nontender. EXTREMITIES: no edema. PERIPHERAL PULSES: equal. NEUROLOGIC: Left arm power 3 x 5. Facial droop. Objective Labs and Meds Result diagrams: 04/03/21 05:21 04/03/21 05:21 Lab results: Laboratory Results - last 24 hr 04/02/21 04/02/21 04/02/21 09:15 09:15 11:17 WBC RBC Hgb Hct MCV MCH MCHC RDW Plt Count MPV Immature Gran % (Auto) Neut % (Auto) Lymph % (Auto) [place] % (Auto) Eos % (Auto) Baso % (Auto) Lymph # (Auto) [place] # (Auto) Eos # (Auto) Baso # (Auto) Abs Immat Gran (auto) Absolute Neuts (auto) Absolute Nucleated RBC Nucleated RBC % (auto) Smear Tech's Comments Smear Path Review ESR 4 Sodium Potassium Chloride Carbon Dioxide Anion Gap BUN Creatinine Estim Creat Clear Calc Estimated GFR Random Glucose Calcium Phosphorus Magnesium 1.9 Triglycerides Cholesterol LDL Cholesterol, Calc HDL Cholesterol COVID-19 ([facility]) COVID-19 Clin Com 04/02/21 04/02/21 04/03/21 11:17 20:07 05:21 WBC 10.1 RBC 5.32 Hgb 15.8 Hct 46.1 MCV 86.7 MCH 29.7 MCHC 34.3 RDW 12.8 Plt Count 176 MPV 10.0 Immature Gran % (Auto) 0.2 Neut % (Auto) 46.2 Lymph % (Auto) 45.6 H [place] % (Auto) 6.8 Eos % (Auto) 0.7 Baso % (Auto) 0.5 Lymph # (Auto) 4.6 [place] # (Auto) 0.7 Eos # (Auto) 0.1 Baso # (Auto) 0.1 Abs Immat Gran (auto) 0.02 Absolute Neuts (auto) 4.7 Absolute Nucleated RBC 0.000 Nucleated RBC % (auto) 0.0 Smear Tech's Comments VERIFIED Smear Path Review ESR Sodium Potassium Chloride Carbon Dioxide Anion Gap BUN Creatinine Estim Creat Clear Calc Estimated GFR Random Glucose Calcium Phosphorus Magnesium Triglycerides 142 Cholesterol 195 LDL Cholesterol, Calc 140 HDL Cholesterol 27 D COVID-19 ([facility]) Negative COVID-19 Clin Com See Note 04/03/21 05:21 WBC RBC Hgb Hct MCV MCH MCHC RDW Plt Count MPV Immature Gran % (Auto) Neut % (Auto) Lymph % (Auto) [place] % (Auto) Eos % (Auto) Baso % (Auto) Lymph # (Auto) [place] # (Auto) Eos # (Auto) Baso # (Auto) Abs Immat Gran (auto) Absolute Neuts (auto) Absolute Nucleated RBC Nucleated RBC % (auto) Smear Tech's Comments Smear Path Review ESR Sodium 139 Potassium 3.8 Chloride 107 Carbon Dioxide 23 Anion Gap 13 BUN 14 Creatinine 1.07 Estim Creat Clear Calc 76.5 Estimated GFR > 60 Random Glucose 115 Calcium 9.0 Phosphorus 3.4 Magnesium 2.0 Triglycerides Cholesterol LDL Cholesterol, Calc HDL Cholesterol COVID-19 ([facility]) COVID-19 Clin Com Imaging Radiologist's impression: Impressions Head/Neck CTA 04/02/21 09:37 IMPRESSION: No vessel occlusion or significant stenosis in the cervical or intracranial vasculature. 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 Chronic-appearing infarct in the anterolateral left frontal lobe. Age-indeterminate focal infarct in the right frontal centrum semiovale. No abnormal enhancement. Moderate cervical spondylosis. Multinodular thyroid gland with mild enlargement of the left thyroid lobe. Imaging findings reported to Dr. Patel at 10:07 AM on 04/02/2021. Cervical Spine CT 04/02/21 10:09 IMPRESSION: Moderate degenerative changes of the cervical spine. No acute fracture or dislocation. Chest X-Ray 04/02/21 10:30 IMPRESSION: Unremarkable examination. Assessment and Plan (1) Cerebrovascular accident: Status: Acute (2) Ventricular tachycardia: Status: Acute Plan 71-year-old gentleman who is presenting for stroke and received tPA. He has r esidual weakness on the left side. Repeat imaging is pending. He has runs of ventricular tachycardia on telemetry. He has been asymptomatic. Potassium is 3.8 and magnesium is 2. Keep potassium close to 4.5. Will give 1 g magnesium. He clearly has R on T phenomenon on the strips and some fusion beats. I think the likely diagnosis is ventricular tachycardia right now. I will check an EKG right now to assess QT interval and then start him on amiodarone 400 mg 2 times a day. If blood pressure allows and I think we should at 25 mg of Toprol-XL. Will check echocardiogram to assess LV for any structural issues. As he recovers further then we will discuss ischemic evaluation. Please check another set of troponins. Thank you for allowing me to participate in the care of your patient. Please feel free to contact me if you have any questions. Procedures Date of Service Date of Service: 04/03/21
--- NOTE | 2021-04-03 11:36 | MHC.CM.PN ---
Met with pt and his sister Skye with whom he is residing and who interprets for pt as he is German speaking. Per assessment, pt has been staying with his sister for close to a year. He has a and two sons in [place]. Pt sees Yamilka Guallpa as a PCP but does not have medical insurance aside from HSN. Pt has no equipment or services and his sister can assist with anything he needs including transportation. Pt declined completion of HCP as he needs to discuss this with his family back in [place]. Pt is NOT Covid vaccinated having had COVID in 03/2020 and is refusing to be vaccinated at this time. Pt is + CVA with visible hemiparesis and speech deficits. He will likely need some sort of rehab either at his sister's home or in a facility. D/T his lack of payor source, this will be impossible. Arsenio states they had initiated a [facility] last year with [facility] [place] [facility] financial - referred to A Michelle who will contact Skye to complete. CM to hold on referrals at this time since pt does not have the ability to private pay and lacks an insurance to assist. Updated ICU care team on above. CM to follow
--- NOTE | 2021-04-03 12:34 | P.PNCC_ITS ---
Subjective Subjective Date of Service: 04/03/21 Interval History: 71-year-old gentleman with no stated underlying medical history admitted on 04/02/2021 with left-sided weakness and in IA chest score of 13, given tPA with improvement of his symptoms and admitted to intensive care unit. Overnight patient was noted to have asymptomatic episodes of nonsustained V-tach versus SVT. He has been evaluated by neurology and cardiology services and is pending his swallow evaluation. Critical Care Time (minutes): 0 Physical Exam Verdana 4l Vital Signs: Verdana 4d Verdana 4d Vital Signs: Verdana 4d Verdana 4Bd Last Vital Signs Verdana 4d Chop Saw Operator New 4d Chop Saw Operator New 4d Temp 98.8 F 04/03/21 08:00 Chop Saw Operator New 4d Pulse 71 04/03/21 12:00 Chop Saw Operator New 4d Resp 26 H 04/03/21 12:00 BP 145/90 H 04/03/21 12:00 Pulse Ox 91 L 04/03/21 12:00 BMI result Body Mass Index 34.0 Const: General: no acute distress, alert and awake Eyes: Sclerae: sclerae normal EOM: EOMs intact bilaterally Neck: Neck: Yes no lymphadenopathy, Yes trachea midline and Yes supple Resp: Effort & Inspection: normal respiratory effort and no respiratory distress Auscultation: clear to auscultation bilaterally Cardio: Rate: regular rate Rhythm: regular rhythm Heart sounds: no gallops, no murmurs and no rubs GI: Palpation (GI): Soft to palpation and Other GI palpation findings present ( Nontender) Auscultation: normal bowel sounds Neuro: General: other ( No focal deficits, strength symmetric 5/5 bilateral) Extrem: General: Yes no pedal edema, No clubbing and No cyanosis Objective Data Labs CBC & Chem 7: 04/03/21 05:21 04/03/21 05:21 Labs: Laboratory Results - last 24 hr 04/02/21 04/02/21 04/03/21 09:15 20:07 05:21 WBC 10.1 RBC 5.32 Hgb 15.8 Hct 46.1 MCV 86.7 MCH 29.7 MCHC 34.3 RDW 12.8 Plt Count 176 MPV 10.0 Immature Gran % (Auto) 0.2 Neut % (Auto) 46.2 Lymph % (Auto) 45.6 H [place] % (Auto) 6.8 Eos % (Auto) 0.7 Baso % (Auto) 0.5 Lymph # (Auto) 4.6 [place] # (Auto) 0.7 Eos # (Auto) 0.1 Baso # (Auto) 0.1 Abs Immat Gran (auto) 0.02 Absolute Neuts (auto) 4.7 Absolute Nucleated RBC 0.000 Nucleated RBC % (auto) 0.0 Smear Tech's Comments VERIFIED Smear Path Review Sodium Potassium Chloride Carbon Dioxide Anion Gap BUN Creatinine Estim Creat Clear Calc Estimated GFR Random Glucose Calcium Phosphorus Magnesium Triglycerides 142 Cholesterol 195 LDL Cholesterol, Calc 140 HDL Cholesterol 27 D 04/03/21 05:21 WBC RBC Hgb Hct MCV MCH MCHC RDW Plt Count MPV Immature Gran % (Auto) Neut % (Auto) Lymph % (Auto) [place] % (Auto) Eos % (Auto) Baso % (Auto) Lymph # (Auto) [place] # (Auto) Eos # (Auto) Baso # (Auto) Abs Immat Gran (auto) Absolute Neuts (auto) Absolute Nucleated RBC Nucleated RBC % (auto) Smear Tech's Comments Smear Path Review Sodium 139 Potassium 3.8 Chloride 107 Carbon Dioxide 23 Anion Gap 13 BUN 14 Creatinine 1.07 Estim Creat Clear Calc 76.5 Estimated GFR > 60 Random Glucose 115 Calcium 9.0 Phosphorus 3.4 Magnesium 2.0 Triglycerides Cholesterol LDL Cholesterol, Calc HDL Cholesterol Progress Note: A&P Assessment and plan (1) Cerebrovascular accident: Status: Acute (2) Ventricular tachycardia: Status: Acute (3) BPH (benign prostatic hyperplasia): Status: Acute Plan Assessment: 71-year-old gentleman admitted with an acute CVA, given tPA, and monitored in the intensive care unit, also noted to have asymptomatic runs of SVT versus V-tach Plan: Neuro: acute CVA status post tPA. Neurology service care appreciated. MRI is pending. Symptoms improved significantly. Started on aspirin. Cardiac: SVT versus nonsustained V-tach. Cardiology service care appreciated. Started on Amiodarone on as per recommendations. 2D echo is pending. Pulmonary: No acute issues. Renal: No acute issues. Endo: No acute issues. GI: No acute issues. ID: No acute issues Heme/Onc: No acute issues. Psych: No acute issues. Miscellaneous: No acute issues. Prophylaxis: Intermittent pneumatic compression Diet: Pending swallow evaluation Quality Stroke Does the patient have a stroke diagnosis?: Yes Reason for No Anti-thrombotic by Day Two: N/A - Med Ordered VTE Prior VTE?: No VTE Risk Level:: Medical - moderate - high VTE Device Contraindication: N/A - Device Ordered VTE Drug Contraindication: Treatment Not Tolerated
[2021-04-03 12:46] LABS: Troponin-I High Sensitivity 20.6 ng/L (<3.5-35.0)
[2021-04-03] MEDS: Magnesium Sulfate/D5W 1 GM/100 ML PIGGYBACK IV (13:13)
[2021-04-03] MEDS: Amiodarone HCL 200 MG TABLET 400 MG PO ×2 (13:13→21:01)
[2021-04-03] MEDS: Aspirin 81 MG TAB.CHEW PO (13:13)
--- NOTE | 2021-04-03 13:30 | CA_ITS ---
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 - The basal inferior segment is akinetic. Findings Procedure Information Contrast agent, definity, is being given per protocol without apparent complications. Left Ventricle Normal left ventricular size and systolic function. There is mildly increased left ventricular wall thickness. The visually estimated ejection fraction is between 55-60%. There is evidence of regional wall motion abnormalities. Diastolic function is normal for age. Wall Motion Rest Echo Findings The basal inferior segment is akinetic. Right Ventricle Normal right ventricular cavity size and systolic function. Atria The left atrium is normal in size. Aortic Valve Normal aortic valve structure and function. There is no aortic valve stenosis. There is no aortic valve regurgitation. Mitral Valve Normal mitral valve structure and function. There is no mitral valve regurgitation. There is no mitral valve stenosis. Pulmonic Valve The pulmonic valve is likely normal. Tricuspid Valve Normal tricuspid valve structure and function. There is trace tricuspid valve regurgitation. Normal right atrial pressure. There is no evidence of pulmonary hypertension. Great Vessels There is mild dilatation of the ascending aorta measuring 3.80 cm. The visualized portions of the pulmonary artery and branches are normal. Venous The inferior vena cava is normal in size and collapses greater than 50% with inspiration. Pericardium/Pleural There is no evidence of pericardial effusion. Prior Study Comparison No prior study available for comparison. Measurements 2D Linear Measurements IVSd: 1.29 0.6-0.9/0.6-1.0 cm LVIDd: 4.15 3.9-5.3/4.2-5.9 cm LVIDd Index: 1.89 2.4-3.2/2.2-3.1 cm/m2 LVIDs: 2.65 2.0-3.6 cm LVPWd: 1.30 0.7-1.1 cm Ao Root: 3.80 2.1-3.5 cm LA Diam: 3.80 2.7-3.8/3.0-4.0 cm LAIDs Index: 1.74 1.5-2.3 cm/m2 LV Mass: 244.10 67-162/88-224 g LV Mass Index: 111.46 43-95/49-115 g/m2 LVOT Diam: 2.70 3.0+(-)1.3 cm Mitral Valve MV Pk E: 0.37 MV PK A: 0.72 MV Decel Time: 246.00 E/A: 0.50 E'Lateral: 7.29 E'Medial: 5.11 E/E' Med: 7.30 E/E' Lat: 5.10 PHT: 72.00 MVA PHT: 3.06 Decel Wagoner: 1.52 Aortic Valve AoV Pk [place]: 1.05 AoV Mn [place]: 0.69 AoV VTI: 0.22 AoV Pk Grad: 4.00 Aov Mn Grad: 2.00 MEREDITH Cont.VTI: 4.71 LVOT LVOT Pk [place]: 0.93 LVOT Mn [place]: 0.59 LVOT VTI: 0.18 LVOT Pk Grad: 3.00 LVOT Mn Grad: 2.00 LVOT Diam: 2.70 LVOT Area: 5.73 Diastolic Function MV Pk E: 0.37 MV Pk A: 0.72 E/A: 0.50 E'Medial: 5.11 E/E' Med: 7.30 E' Laterial: 7.29 E/E' Lat: 5.10 Right Ventricle TAPSE (mm): 21.00 TVS' [place]: 15.00 Tricuspid Valve TR Pk [place]: 1.99 TR Pk Grad: 16.00 Great Vessels Aorta Ao Root-2D: 3.80 2.0-3.7 cm Ao Asc: 3.80 2.1-3.4 cm Pulmonary Valve PV Pk [place]: 0.90 Peak PV Grad: 3.00 Updated in Other Vendor System with Status of Final Darwin Valdez MD electronically signed on 04/03/2021 9:19:07 PM with status of Final
--- NOTE | 2021-04-03 13:53 | MHC.SL.SWA ---
Speech Pathologist Impression: Risk of Aspiration Oralpharyngeal Dysphagia Risk of Aspiration Due to: Neurological Condition Dysphasia Diet Status: Upgrade Liquid Consistency and Strategies for Safe Swallow: Liquid Intake Recommendation: Thin Liquid Intake Strategies: Small Sips No Straws Solid Food Consistency: Dietary Recommendations: Grnd/Mech Altered (NDD2) Additional Modifications to Solid Foods: Recommend GROUND/MECH ALTERED (NDD2) solids (with extra sauce/gravy) for ease of mastication and to reduce fatigue, and THIN liquids (individual sips, NO STRAWS), pills WHOLE in PUREE. Patient is recommended aspiration precautions and total supervision. RN, RD, MD notified via [employer] Message. CHOCOLATE FINISHER OPERATOR will continue to follow for potential upgrade. Oral Medication Intake: Whole with Puree Compensatory Strategies and Precautions to be Taken for Safe Swallow: Sitting Upright (90 deg) No Straw Liquids from Cup Liquids from Spoon Small Bites and Sips Alternate Liquids/Solids Rate of Ingestion Change Supervision While Eating and Drinking for Safe Swallow: Total Supervision (1:1) Swallowing Recommended Treatments: Compens. Strategy Educat. Recommendation for Speech: Inpatient Speech Therapy Frequency/Duration: M-F Regional Extension Service Specialist Clinican/Clinical Fellow: No Supervisory Statement: I have reviewed and agree with the student/clinical fellow's documentation: N/A Speech Language Pathologist: Corry Constantino M.A., CCC-CHOCOLATE FINISHER OPERATOR
[2021-04-03] MEDS: Atorvastatin Calcium 40 MG TABLET PO (21:01)
[2021-04-04 02:27] LABS: Anion Gap 14 (12-20); Blood Urea Nitrogen 15 mg/dL (9-16); Calcium 8.8 mg/dL (8.4-10.2); Carbon Dioxide 23 mmol/L (22-29); Chloride 105 mmol/L (96-108); Creatinine Clr Calc Pharmacy 71.2; Estimated Glomerular Filt Rate > 60; Glucose Random 121 mg/dL (60-115); Magnesium 2.1 mg/dL (1.6-2.6); Potassium 3.8 mmol/L (3.3-5.1); Sodium 138 mmol/L (135-145)
[2021-04-04 04:00] VITALS: BP 130/86; PULSE 70; RESP 18; TEMP 36.9; O2SAT 95
[2021-04-04 05:38] VITALS: BMI 32.1
--- NOTE | 2021-04-04 07:31 | PC.NURSE ---
Patient having runs of VTach overnight, asymptomatic. Hospitalist notified ,BMP and magnesium level ordered. Results normal. HR sinus rhythm/sinus mara with frequent PVC's at present. Will continue to monitor.
[2021-04-04 08:00] VITALS: BP 116/75; PULSE 73; RESP 20; TEMP 36.5; O2SAT 96
[2021-04-04] MEDS: Amiodarone HCL 200 MG TABLET 400 MG PO ×2 (08:15→20:34)
[2021-04-04] MEDS: Aspirin 81 MG TAB.CHEW PO (08:15)
[2021-04-04 11:19] LABS: Glucose, Whole Blood 132 mg/dL (60-115)
[2021-04-04 12:00] VITALS: BP 148/86; PULSE 74; RESP 20; TEMP 37.1; O2SAT 95
[2021-04-04] MEDS: Metoprolol Tartrate 25 MG TABLET PO ×2 (12:08→20:34)
[2021-04-04] MEDS: Potassium Chloride Packet 20 MEQ PACKET 40 MEQ PO (12:09)
--- NOTE | 2021-04-04 12:16 | MHC.SL.SWA ---
Speech Pathologist Impression: Risk of Aspiration Oralpharyngeal Dysphagia Risk of Aspiration Due to: Neurological Condition Dysphasia Diet Status: Upgrade Liquid Consistency and Strategies for Safe Swallow: Liquid Intake Recommendation: Thin Liquid Intake Strategies: Small Sips No Straws Solid Food Consistency: Dietary Recommendations: Grnd/Mech Altered (NDD2) Additional Modifications to Solid Foods: Recommend GROUND/MECH ALTERED (NDD2) solids (with extra sauce/gravy) for ease of mastication and to reduce fatigue, and THIN liquids (individual sips, NO STRAWS), pills WHOLE in PUREE. Patient is recommended aspiration precautions and total supervision. Oral Medication Intake: Whole with Puree Compensatory Strategies and Precautions to be Taken for Safe Swallow: Sitting Upright (90 deg) No Straw Liquids from Cup Alternate Liquids/Solids Supervision While Eating and Drinking for Safe Swallow: Intermittent Supervision Foods to Avoid: Swallowing Recommended Treatments: Compens. Strategy Educat. Recommendation for Speech: Inpatient Speech Therapy Comment: Pt seen this a.m. to assess toleration of diet and re-assess swallow. Pt speaks [place], but was able to report that he had a breakfast of eggs, fruit, cereal and coffee. Pt took sip of water from cup, was able to contain water well orally, mild delay of swallow trigger, w/ no clinical signs of aspiration. Pt took Tsp of apple sauce, w/ oral transit wnl, mild delay initiating swallow. Recommend continue diet of Ground/Mech/Alt (NDD2) and THIN liquids w/ Pills WHOLE in Puree. Pt tolerating diet well at this time. Patient is recommended aspiration precautions and total supervision. LABORATORY COORDINATOR will continue to follow for potential upgrade. Frequency/Duration: M-F Date Range for Service Req: Timeline to reassess: Cutting And Printing Machine Operator Clinican/Clinical Fellow: No Supervisory Statement: I have reviewed and agree with the student/clinical fellow's documentation: N/A Speech Language Pathologist: Josephine Singh M.A., CCC-LABORATORY COORDINATOR
--- NOTE | 2021-04-04 13:50 | P.PNCA_ITS ---
Subjective Subjective Date of Service: 04/04/21 Interval history: Telemetry reviewed which showed multiple episodes of nonsustained ventricular tachycardia. He has been asymptomatic. Denying any chest pain or shortness of breath. Physical Exam Vital Signs: Last Vital Signs Temp 98.8 F 04/04/21 12:00 Pulse 74 04/04/21 12:00 Resp 20 04/04/21 12:00 BP 148/86 H 04/04/21 12:00 Pulse Ox 95 04/04/21 12:00 BMI result Body Mass Index 32.1 GENERAL APPEARANCE: in no acute distress, pleasant. NECK: no carotid bruit, no jugular venous distention. SKIN: no suspicious lesions, warm and dry. HEART: no murmurs, regular rate and rhythm. LUNGS: clear to auscultation bilaterally. ABDOMEN: soft, nontender. EXTREMITIES: no edema. PERIPHERAL PULSES: equal. NEUROLOGIC: Left-sided facial droop, left arm power 3/5. Objective Labs and Meds Result diagrams: 04/03/21 05:21 04/04/21 02:01 Lab results: Laboratory Results - last 24 hr 04/04/21 04/04/21 02:01 11:16 Sodium 138 Potassium 3.8 Chloride 105 Carbon Dioxide 23 Anion Gap 14 BUN 15 Creatinine 1.15 Estim Creat Clear Calc 71.2 Estimated GFR > 60 POC Glucose 132 H Random Glucose 121 H Calcium 8.8 Magnesium 2.1 Progress Note: A&P Assessment and plan (1) Cerebrovascular accident: Status: Acute (2) Ventricular tachycardia: Status: Acute Plan Pleasant 71-year-old [place] gentleman who is here for stroke. He has received tPA. Brain MRI showing evolving MCA stroke. No bleeding. He has been started on baby aspirin. Was noted to have episodes of ventricular tachycardia. He was asymptomatic during them. He was started on amiodarone and he has not had prolonged episodes since then but continues to have nonsustained ventricular tachycardia. Echocardiography has shown basal inferior wall motion abnormality. Troponin has been normal. Adding metoprolol 25 mg 3 times a day. I have discussed with the patient and his sister about cardiac catheterization and EP evaluation for the ventricular tachycardia. The sister wants to discuss with patient's son and decide. If they agree then I will transfer to [facility] for diagnostic angiogram and will involve electrophysiology there. Thank you for allowing me to participate in the care of your patient. Please feel free to contact me if you have any questions. Fall Risk Details Current Medications: Current Medications Amiodarone HCl (Amiodarone Hcl 200 Mg Tablet) 400 mg PO BID [facility] Last Admin: 04/04/21 08:15 Dose: 400 mg Documented by: Aspirin (Aspirin 81 Mg Tab.Chew) 81 mg PO DAILY [facility] Last Admin: 04/04/21 08:15 Dose: 81 mg Documented by: Atorvastatin Calcium (Atorvastatin Calcium 40 Mg Tablet) 40 mg PO BEDTIME [facility] Last Admin: 04/03/21 21:01 Dose: 40 mg Documented by: Metoprolol Tartrate (Metoprolol Tartrate 25 Mg Tablet) 25 mg PO BID [facility]; Protocol Last Admin: 04/04/21 12:08 Dose: 25 mg Documented by: Time Spent With Patient Time: Total time spent is greater than 50% in coordination of care (as documented) at patient's floor/unit and/or counseling patient: Time with patient: 25 - 35 minutes Progress Note: Quality Stroke Does the patient have a stroke diagnosis?: Yes Reason for No Anti-thrombotic by Day Two: N/A - Med Ordered Procedures Date of Service Date of Service: 04/04/21
--- NOTE | 2021-04-04 15:25 | PC.NURSE ---
Pt will be having an MRI. he has been having runs of v tach. Despite this Dr. Valdez approved his going for the MRI without a monitor, therefore I would not need to accompany him. Dr. Valdez asked that he have pacer pads on but they can't do an MRI with pads on. I notified Dr. Valdez and he texted me that the patient could go to the MRI without the pads.
--- NOTE | 2021-04-04 15:30 | P.PNIM_ITS ---
Subjective Subjective Date of Service: 04/04/21 Interval History: nsvt, cva Review of Systems denies any chest pain or plapatations or sob. Physical Exam Vital Signs: Vital Signs: Last Vital Signs Temp 98.8 F 04/04/21 12:00 Pulse 74 04/04/21 12:00 Resp 20 04/04/21 12:00 BP 148/86 H 04/04/21 12:00 Pulse Ox 95 04/04/21 12:00 BMI result Body Mass Index 32.1 Appearance: Alert.? Oriented X3.? not in distress.? Eyes: Pupils equal, round and reactive to light.? Sclera nonicteric.? ENT: Pharynx normal.? Moist mucous membranes. cvs: rrr, [id number] , no murmur res: clear to auscultation ,no rhonchii or wheezing abd: no rebound or guarding ,nt, bs present. ext pulses present , no cyanosis . neuro:alert and awake withspeech normal.? Visual field or probably intact.? There was minimal left-sided facial flatness.? moves all extermities , follows commands Objective Data Active Medications Amiodarone HCl (Amiodarone Hcl 200 Mg Tablet) 400 mg PO BID [facility] Last Admin: 04/04/21 08:15 Dose: 400 mg Documented by: DURAN Aspirin (Aspirin 81 Mg Tab.Chew) 81 mg PO DAILY [facility] Last Admin: 04/04/21 08:15 Dose: 81 mg Documented by: DURAN Atorvastatin Calcium (Atorvastatin Calcium 40 Mg Tablet) 40 mg PO BEDTIME [facility] Last Admin: 04/03/21 21:01 Dose: 40 mg Documented by: SHARATH Metoprolol Tartrate (Metoprolol Tartrate 25 Mg Tablet) 25 mg PO BID [facility]; Protocol Last Admin: 04/04/21 12:08 Dose: 25 mg Documented by: DURAN Labs CBC & Chem 7: 04/03/21 05:21 04/04/21 02:01 Labs: Laboratory Results - last 24 hr 04/04/21 04/04/21 02:01 11:16 Anion Gap 14 Estim Creat Clear Calc 71.2 Estimated GFR > 60 POC Glucose 132 H Random Glucose 121 H Calcium 8.8 Magnesium 2.1 Assessment and Plan (1) Cerebrovascular accident: Status: Acute (2) Ventricular tachycardia: Status: Acute Plan 71 y/o M came with cva , ventricular tachycardia: 1. Cva: s/p tap yesterday continue asa, statin mri head added neuro followup , permissive blood presssure(htn). 2. Ventricular tachycardia: moniter tele still having frequent episodes of nsvt potassium replacement added -keep k>4 , mag>2 started on amiodarone , metoprolol added cardiology follow up 3.obesity: encouraged for weight loss , outpatient follow with pcp , consider bariatric eval. dvt prophylax : Quality Stroke Does the patient have a stroke diagnosis?: Yes Reason for No Anti-thrombotic by Day Two: N/A - Med Ordered VTE Prior VTE?: No VTE Risk Level:: Medical - moderate - high VTE Device Contraindication: N/A - Device Ordered VTE Drug Contraindication: Treatment Not Tolerated
[2021-04-04 15:31] VITALS: BP 142/84; PULSE 62; RESP 18; TEMP 37.1; O2SAT 95
[2021-04-04 19:48] VITALS: BP 137/71; PULSE 65; RESP 18; TEMP 36.7; O2SAT 98
[2021-04-04] MEDS: Atorvastatin Calcium 40 MG TABLET PO (20:34)
[2021-04-04 23:51] VITALS: BP 133/79; PULSE 57; RESP 15; TEMP 37.1; O2SAT 96
[2021-04-05] VITALS (8 sets, daily range): BP systolic 113–153; BP diastolic 62–84; PULSE 53–66; RESP 16–18; TEMP 36.1–37.3; O2SAT 93–95; BMI 31.9
[2021-04-05 08:56] LABS: Anion Gap 13 (12-20); Blood Urea Nitrogen 21 mg/dL (9-16); Calcium 9.2 mg/dL (8.4-10.2); Carbon Dioxide 25 mmol/L (22-29); Chloride 107 mmol/L (96-108); Creatinine Clr Calc Pharmacy 61.1; Estimated Glomerular Filt Rate 55; Glucose Random 108 mg/dL (60-115); Potassium 4.3 mmol/L (3.3-5.1); Sodium 141 mmol/L (135-145)
[2021-04-05] MEDS: Potassium Chloride Packet 20 MEQ PACKET PO (09:36)
[2021-04-05] MEDS: Amiodarone HCL 200 MG TABLET 400 MG PO ×2 (09:36→20:40)
[2021-04-05] MEDS: Metoprolol Tartrate 25 MG TABLET PO (09:36)
[2021-04-05] MEDS: Aspirin 81 MG TAB.CHEW PO (09:36)
--- NOTE | 2021-04-05 11:17 | MHC.CM.PN ---
Per ROUNDS discussion, Patient is not yet medically cleared for dc ((needs Stress Test and to be seen by Neuro); PT recommends home with services and Patient does now have insurance; CM will continue to follow. Per MD, at this time Patient is refusing to go to [facility] for Cardiac Cath.
[2021-04-05 11:18] LABS: Glucose, Whole Blood 168 mg/dL (60-115)
[2021-04-05] MEDS: Clopidogrel Bisulfate 75 MG TABLET PO (13:04)
--- NOTE | 2021-04-05 13:59 | MHC.SL.SWA ---
Speech Pathologist Impression: Risk of Aspiration Oralpharyngeal Dysphagia Risk of Aspiration Due to: Neurological Condition Dysphasia Diet Status: Upgrade Liquid Consistency and Strategies for Safe Swallow: Liquid Intake Recommendation: Thin Liquid Intake Strategies: Small Sips Solid Food Consistency: Dietary Recommendations: Regular Per MD, patient made NPO for stress test. Once patient is cleared to have PO after procedure, recommend UPGRADE to REGULAR solids, THIN liquids, pills WHOLE in LIQUID. Continue aspiration precautions given recent stroke. EDGER MACHINE HELPER will f/u 1x time to ensure tolerance. Oral Medication Intake: Whole with Liquid Compensatory Strategies and Precautions to be Taken for Safe Swallow: Sitting Upright (90 deg) Small Bites and Sips Alternate Liquids/Solids Rate of Ingestion Change Supervision While Eating and Drinking for Safe Swallow: Intermittent Supervision Swallowing Recommended Treatments: Compens. Strategy Educat. Recommendation for Speech: 1 f/u Stenocaptioner Clinican/Clinical Fellow: No Supervisory Statement: I have reviewed and agree with the student/clinical fellow's documentation: N/A Speech Language Pathologist: Corry Constantino M.A., [facility]-EDGER MACHINE HELPER
--- NOTE | 2021-04-05 14:23 | HO.PM.IMPN ---
Subjective Subjective Date of Service: 04/06/21 Interval History: CVA, ventricular tachycardia Review of Systems patient denies any chest pain or shortness of breath or abdominal pain or fever or chills Physical Exam Vital Signs: Vital Signs: Last Vital Signs Temp 97 F 04/05/21 11:14 Pulse 54 04/05/21 11:14 Resp 18 04/05/21 11:14 BP 126/69 04/05/21 11:14 Pulse Ox 94 04/05/21 11:14 BMI result Body Mass Index 31.9 Appearance: Alert.? Oriented X3.? not in distress.? Eyes: Pupils equal, round and reactive to light.? Sclera nonicteric.? ENT: Pharynx normal.? Moist mucous membranes. cvs: rrr, [id number] , no murmur res: clear to auscultation ,no rhonchii or wheezing abd: no rebound or guarding ,nt, bs present. ext pulses present , no cyanosis . neuro:alert and awake withs peech normal.? ?Visual field or probably intact.? There was minimal left-sided facial flatness.? moves all extermities , follows commands Objective Data Active Medications Amiodarone HCl (Amiodarone Hcl 200 Mg Tablet) [address] [facility] Last Admin: 04/05/21 09:36 Dose: 400 mg Documented by: JOSE Aspirin (Aspirin 81 Mg Tab.Chew) [address] [facility] Last Admin: 04/05/21 09:36 Dose: 81 mg Documented by: JOSE Atorvastatin Calcium (Atorvastatin Calcium 40 Mg Tablet) [address] [facility] Last Admin: 04/04/21 20:34 Dose: 40 mg Documented by: CAMRON Clopidogrel Bisulfate (Clopidogrel Bisulfate 75 Mg Tablet) [address] [facility] Last Admin: 04/05/21 13:04 Dose: 75 mg Documented by: JOSE Metoprolol Tartrate (Metoprolol Tartrate 25 Mg Tablet) [address] [facility]; Protocol Last Admin: 04/05/21 09:36 Dose: 25 mg Documented by: JOSE Labs CBC & Chem 7: 04/03/21 05:21 04/05/21 08:14 Labs: Laboratory Results - last 24 hr 04/05/21 04/05/21 08:14 11:14 Anion Gap 13 Estim Creat Clear Calc 61.1 Estimated GFR 55 POC Glucose 168 H Random Glucose 108 Calcium 9.2 Assessment and Plan (1) Cerebrovascular accident: Status: Acute (2) Ventricular tachycardia: Status: Acute Plan 71 y/o M came with cva , ventricular tachycardia: 1. Cva: s/p tap yesterday continue asa,added plavix, statin mri head nited neuro followup noted -may need AC , for now started on asa and plavix incase he needs cardiac procedure , permissive blood presssure(htn). 2. Ventricular tachycardia: moniter tele still having frequent episodes of nsvt potassium replacement added -keep k>4 , mag>2 started on amiodarone , metoprolol added cardiology follow up- 3.obesity: encouraged for weight loss , outpatient follow with pcp , consider bariatric eval. dvt prophylax :[employer] [facility] Quality Stroke Does the patient have a stroke diagnosis?: Yes Reason for No Anti-thrombotic by Day Two: N/A - Med Ordered VTE Prior VTE?: No VTE Risk Level:: Medical - moderate - high VTE Device Contraindication: N/A - Device Ordered VTE Drug Contraindication: Treatment Not Tolerated
--- NOTE | 2021-04-05 18:26 | PM.PNCARD ---
Subjective Subjective Date of Service: 04/05/21 Interval history: Continues to have NSVT. Asymptomatic. Physical Exam Vital Signs: Last Vital Signs Temp 98.3 F 04/05/21 15:31 Pulse 53 04/05/21 15:31 Resp 16 04/05/21 15:31 BP 122/69 04/05/21 15:31 Pulse Ox 95 04/05/21 15:31 BMI result Body Mass Index 31.9 GENERAL APPEARANCE: in no acute distress, pleasant. NECK: no carotid bruit, no jugular venous distention. SKIN: no suspicious lesions, warm and dry. HEART: no murmurs, regular rate and rhythm. LUNGS: clear to auscultation bilaterally. ABDOMEN: soft, nontender. EXTREMITIES: no edema. PERIPHERAL PULSES: equal. NEUROLOGIC:? Left-sided facial droop, left arm power 3/5. Objective Labs and Meds Result diagrams: 04/03/21 05:21 04/05/21 08:14 Lab results: Laboratory Results - last 24 hr 04/05/21 04/05/21 08:14 11:14 Sodium 141 Potassium 4.3 Chloride 107 Carbon Dioxide 25 Anion Gap 13 BUN 21 H Creatinine 1.30 Estim Creat Clear Calc 61.1 Estimated GFR 55 POC Glucose 168 H Random Glucose 108 Calcium 9.2 Progress Note: A&P Assessment and plan (1) Cerebrovascular accident: Status: Acute (2) Ventricular tachycardia: Status: Acute Plan 71-year-old gentleman who presented with CVA. He was noted to have recurrent runs of nonsustained ventricular tachycardia. He was started on amiodarone and beta-sander. He still has runs of ventricular tachycardia and they were all nonsustained. Echocardiography has shown normal ejection fraction with some concern for basal inferior wall motion abnormality. He has no his chest pain or shortness of her right now and has not had it at home. Detailed discussion was done with the sister and patient. I explained to her that next step is to do diagnostic angiography to make sure he does not have any coronary disease. She told me she needs to discuss this with the family specially patient's son. After discussion she told me she does not want to go ahead with cardiac catheterization. Continue the medications as above. Will titrate beta-sander further if he can tolerated. We will do a Lexiscan on him make sure he does not have any obvious ischemia. If no ischemia then would arrange a cardiac event monitor for him and let him go home. Currently does not have any indication for ICD placement because he does not have sustained ventricular tachycardia or syncope. Thank you for allowing me to participate in the care of your patient. Please feel free to contact me if you have any questions. Fall Risk Details Current Medications: Current Medications Amiodarone HCl (Amiodarone Hcl 200 Mg Tablet) 400 mg PO BID [facility] Last Admin: 04/05/21 09:36 Dose: 400 mg Documented by: Apixaban (Apixaban 5 Mg Tablet) 5 mg PO BID [facility] Atorvastatin Calcium (Atorvastatin Calcium 40 Mg Tablet) 40 mg PO BEDTIME [facility] Last Admin: 04/04/21 20:34 Dose: 40 mg Documented by: Metoprolol Tartrate (Metoprolol Tartrate 25 Mg Tablet) 25 mg PO TID [facility]; Protocol Last Admin: 04/05/21 15:37 Dose: Not Given Documented by: Omeprazole (Omeprazole 20 Mg Capsule.Dr) 20 mg PO BEDTIME [facility] Time Spent With Patient Time: Total time spent is greater than 50% in coordination of care (as documented) at patient's floor/unit and/or counseling patient: Time with patient: 25 - 35 minutes Progress Note: Quality Stroke Does the patient have a stroke diagnosis?: Yes Reason for No Anti-thrombotic by Day Two: N/A - Med Ordered Procedures Date of Service Date of Service: 04/05/21
[2021-04-05] MEDS: Omeprazole 20 MG CAPSULE.DR PO (20:40)
[2021-04-05] MEDS: Atorvastatin Calcium 40 MG TABLET PO (20:40)
[2021-04-05] MEDS: Apixaban 5 MG TABLET PO (20:41)
--- NOTE | 2021-04-06 | CA_ITS ---
Acquisition Time: 2021-04-06 10:10:21 Total Exercise Time: 00:02:00 Test Indications: VT Medications: SEE CHART Protocol: LEXISCAN Max HR: 093 BPM 62% of Pred: 150 BPM Max BP: 148/076 mmHG Max Work Load: 1.0 METS Pharmacological stress test with Lexiscan injection, while sitting and kicking his legs, without anginal symptoms, without arrythmia, with normotensive response to injection, with nondiagnostic EKG for ischemia. In recovery he was treated with Aminophylline 75mg IV to reverse Lexiscan. Nuclear images pending. Test reviewed with Dr Valdez. Referred By: Darwin Valdez Overread By: GABE JARAMILLO
[2021-04-06 03:31] VITALS: BP 141/77; PULSE 60; RESP 18; TEMP 37.6; O2SAT 95
[2021-04-06 06:00] VITALS: BMI 31.8
[2021-04-06 07:36] VITALS: BP 143/82; PULSE 54; RESP 18; TEMP 36.7; O2SAT 93
[2021-04-06] MEDS: Apixaban 5 MG TABLET PO ×2 (09:08→21:00)
[2021-04-06] MEDS: Amiodarone HCL 200 MG TABLET 400 MG PO ×2 (09:08→21:00)
--- NOTE | 2021-04-06 10:47 | P.PNCA_ITS ---
Subjective Subjective Date of Service: 04/06/21 Interval history: Feeling good. No chest pain or shortness of breath. Physical Exam Vital Signs: Last Vital Signs Temp 98.0 F 04/06/21 07:36 Pulse 54 04/06/21 07:36 Resp 18 04/06/21 07:36 BP 143/82 H 04/06/21 07:36 Pulse Ox 93 04/06/21 07:36 BMI result Body Mass Index 31.8 GENERAL APPEARANCE: in no acute distress, pleasant. NECK: no carotid bruit, no jugular venous distention. SKIN: no suspicious lesions, warm and dry. HEART: no murmurs, regular rate and rhythm. LUNGS: clear to auscultation bilaterally. ABDOMEN: soft, nontender. EXTREMITIES: no edema. PERIPHERAL PULSES: equal. NEUROLOGIC:? Left-sided facial droop, left arm power 3/5. Objective Labs and Meds Result diagrams: 04/03/21 05:21 04/05/21 08:14 Lab results: Laboratory Results - last 24 hr 04/05/21 11:14 POC Glucose 168 H Progress Note: A&P Assessment and plan (1) Cerebrovascular accident: Status: Acute (2) Ventricular tachycardia: Status: Acute Plan 71-year-old gentleman presenting with CVA. He was noted to have nonsustained ventricular tachycardia. Echocardiography has shown normal left ventricular ejection fraction with some concern for basal inferior wall motion abnormality. We discussed about cardiac catheterization with the family but they are not agreeable. Will do stress testing to assess for ischemia. Patient's sister said that cardiac catheterization is out of the question even if his stress is abnormal but I think will be able to give some direction to his care. He has been on beta-sander and amiodarone. I think his metoprolol can be changed to Toprol-XL. Continue the amiodarone 400 mg twice a day load for at least 10-14 days. After that he should be on 200 mg amiodarone. We will arrange cardiac event monitor for him as he gets discharged. He will be referred to electrophysiology as outpatient. Currently he did nonsustained VT and absence of syncope as presentation there is no clear indication to place an ICD. Thank you for allowing me to participate in the care of your patient. Please feel free to contact me if you have any questions. Fall Risk Details Current Medications: Current Medications Amiodarone HCl (Amiodarone Hcl 200 Mg Tablet) 400 mg PO BID [facility] Last Admin: 04/06/21 09:08 Dose: 400 mg Documented by: Apixaban (Apixaban 5 Mg Tablet) 5 mg PO BID [facility] Last Admin: 04/06/21 09:08 Dose: 5 mg Documented by: Atorvastatin Calcium (Atorvastatin Calcium 40 Mg Tablet) 40 mg PO BEDTIME [facility] Last Admin: 04/05/21 20:40 Dose: 40 mg Documented by: Metoprolol Tartrate (Metoprolol Tartrate 25 Mg Tablet) 25 mg PO TID [facility]; Protocol Last Admin: 04/06/21 09:08 Dose: Not Given Documented by: Omeprazole (Omeprazole 20 Mg Capsule.Dr) 20 mg PO BEDTIME [facility] Last Admin: 04/05/21 20:40 Dose: 20 mg Documented by: Time Spent With Patient Time: Total time spent is greater than 50% in coordination of care (as documented) at patient's floor/unit and/or counseling patient: Time with patient: 25 - 35 minutes Progress Note: Quality Stroke Does the patient have a stroke diagnosis?: Yes Reason for No Anti-thrombotic by Day Two: N/A - Med Ordered Procedures Date of Service Date of Service: 04/06/21
--- NOTE | 2021-04-06 11:28 | MHC.SLORD ---
Speech Language Pathology Order Status: Attempted to see Pt this a.m. but Pt away at stress test. was present in room, reported that he had been NPO this morning for the test. Will attempt recommended f/u tomorrow a.m.
[2021-04-06 12:00] VITALS: BP 155/82; PULSE 60; RESP 18; TEMP 36.7; O2SAT 93
[2021-04-06 12:13] LABS: Glucose, Whole Blood 112 mg/dL (60-115)
--- NOTE | 2021-04-06 14:50 | P.PNIM_ITS ---
Subjective Subjective Date of Service: 04/06/21 Interval History: nsvt, cva Review of Systems no new episode of nsvt overnight, denies any chest pain or shortness of breath or abdominal pain or fever or chills or palpitation Physical Exam Vital Signs: Vital Signs: Last Vital Signs Temp 98.0 F 04/06/21 12:00 Pulse 60 04/06/21 12:00 Resp 18 04/06/21 12:00 BP 155/82 H 04/06/21 12:00 Pulse Ox 93 04/06/21 12:00 BMI result Body Mass Index 31.8 Appearance: Alert.? Oriented X3.? not in distress.? Eyes: Pupils equal, round and reactive to light.? Sclera nonicteric.? ENT: Pharynx normal.? Moist mucous membranes. cvs: rrr, [id number] , no murmur res: clear to auscultation ,no rhonchii or wheezing abd: no rebound or guarding ,nt, bs present. ext pulses present , no cyanosis . neuro:alert and awake withs peech normal.? ?Visual field or probably intact.? There was minimal left-sided facial flatness.? moves all extermities , follows commands Objective Data Active Medications Amiodarone HCl (Amiodarone Hcl 200 Mg Tablet) 400 mg PO BID [facility] Last Admin: 04/06/21 09:08 Dose: 400 mg Documented by: JOSE Apixaban (Apixaban 5 Mg Tablet) 5 mg PO BID [facility] Last Admin: 04/06/21 09:08 Dose: 5 mg Documented by: JOSE Atorvastatin Calcium (Atorvastatin Calcium 40 Mg Tablet) 40 mg PO BEDTIME [facility] Last Admin: 04/05/21 20:40 Dose: 40 mg Documented by: CAMRON Metoprolol Tartrate (Metoprolol Tartrate 25 Mg Tablet) 25 mg PO TID [facility]; Protocol Last Admin: 04/06/21 09:08 Dose: Not Given Documented by: JOSE Non-Admin Reason: HR 55 bpm Omeprazole (Omeprazole 20 Mg Capsule.) 20 mg PO BEDTIME [facility] Last Admin: 04/05/21 20:40 Dose: 20 mg Documented by: CAMRON Labs CBC & Chem 7: 04/03/21 05:21 04/05/21 08:14 Labs: Laboratory Results - last 24 hr 04/06/21 12:10 POC Glucose 112 Assessment and Plan (1) Cerebrovascular accident: Status: Acute (2) Ventricular tachycardia: Status: Acute Plan 71 y/o M came with cva , ventricular tachycardia: 1. Cva: s/p tap yesterday continue asa,added plavix, statin mri head nited neuro followup noted -may need AC , for now started on asa and plavix incase he needs cardiac procedure? , permissive blood presssure(htn). 2. Ventricular tachycardia: moniter tele still having frequent episodes of nsvt potassium replacement added -keep k>4 , mag>2 started on amiodarone , metoprolol added cardiology follow up-needs stress test -for further management of ventricular tachycardia . 3.obesity: encouraged for weight loss , outpatient follow with pcp , consider bariatric eval. dvt prophylax :mech devices Above was explained to the family in detail length at the bedside miss Linares, staff miss Acosta was present and witnessed the conversation. Quality Stroke Does the patient have a stroke diagnosis?: Yes Reason for No Anti-thrombotic by Day Two: N/A - Med Ordered VTE Prior VTE?: No VTE Risk Level:: Medical - moderate - high VTE Device Contraindication: N/A - Device Ordered VTE Drug Contraindication: Treatment Not Tolerated
[2021-04-06 15:24] VITALS: BP 130/79; PULSE 57; RESP 14; TEMP 36.6; O2SAT 91
[2021-04-06] MEDS: Metoprolol Tartrate 25 MG TABLET PO (16:28)
[2021-04-06 19:25] VITALS: BP 124/75; PULSE 52; RESP 16; TEMP 37.3; O2SAT 93
[2021-04-06] MEDS: Atorvastatin Calcium 40 MG TABLET PO (21:00)
[2021-04-06] MEDS: Omeprazole 20 MG CAPSULE.DR PO (21:00)
[2021-04-06 23:28] VITALS: BP 117/65; PULSE 58; RESP 20; TEMP 36.8; O2SAT 96
[2021-04-07 02:53] VITALS: BP 145/77; PULSE 54; RESP 20; TEMP 36.7; O2SAT 92
[2021-04-07 06:00] VITALS: BMI 31.2
[2021-04-07 07:26] VITALS: BP 134/80; PULSE 56; RESP 17; TEMP 36.9; O2SAT 94
[2021-04-07] MEDS: Lactated Ringers 1,000 ML 80 ML IVCONT (09:56)
[2021-04-07 10:43] VITALS: BP 134/80; PULSE 56; O2SAT 94
[2021-04-07 10:55] VITALS: BP 148/79; PULSE 60; RESP 17; TEMP 36.9; O2SAT 94
--- NOTE | 2021-04-07 11:00 | MHC.SLORD ---
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 Per RN, patient returned on diet order, but then was made NPO again this morning- she contacted MD. No trials given d/t NPO status- RN reported some pocketing of food- Patient is recommended strategies for oral clearance- small bites, moisten food with sauce/gravy, alternate bite of food with sip of liquid. Patient is on regular solids/thin liquids.
--- NOTE | 2021-04-07 11:39 | MHC.CM.PN ---
Patient is receiving the second half of his Stress Test today. Home with new VNA is the goal for dc and CM will continue to follow for possible need to adjust the dc plan.
[2021-04-07 11:44] LABS: Glucose, Whole Blood 139 mg/dL (60-115)
[2021-04-07] MEDS: Apixaban 5 MG TABLET PO (12:05)
[2021-04-07] MEDS: Amiodarone HCL 200 MG TABLET 400 MG PO (12:06)
--- NOTE | 2021-04-07 12:42 | P.PNCA_ITS ---
Subjective Subjective Date of Service: 04/07/21 Interval history: seen and examined. No symptoms. Tele - no NSVT. Physical Exam Vital Signs: Last Vital Signs Temp 98.5 F 04/07/21 10:55 Pulse 60 04/07/21 10:55 Resp 17 04/07/21 10:55 BP 148/79 H 04/07/21 10:55 Pulse Ox 94 04/07/21 10:55 BMI result Body Mass Index 31.2 GENERAL APPEARANCE: in no acute distress, pleasant. NECK: no carotid bruit, no jugular venous distention. SKIN: no suspicious lesions, warm and dry. HEART: no murmurs, regular rate and rhythm. LUNGS: clear to auscultation bilaterally. ABDOMEN: soft, nontender. EXTREMITIES: no edema. PERIPHERAL PULSES: equal. NEUROLOGIC:? Left-sided facial droop, left arm power 3/5. Objective Labs and Meds Result diagrams: 04/03/21 05:21 04/05/21 08:14 Lab results: Laboratory Results - last 24 hr 04/07/21 10:58 POC Glucose 139 H Progress Note: A&P Assessment and plan (1) Cerebrovascular accident: Status: Acute (2) Ventricular tachycardia: Status: Acute Plan 71-year-old gentleman presenting with CVA.? He was noted to have nonsustained ventricular tachycardia.? Echocardiography has shown normal left ventricular ejection fraction with some concern for basal inferior wall motion abnormality.? We discussed about cardiac catheterization with the family but they are not agreeable.?Stress test is normal.? He has been on beta-sander and amiodarone.? I think his metoprolol can be changed to Toprol-XL.? Continue the amiodarone 400 mg twice a day load for at least 10-14 days.? After that he should be on 200 mg amiodarone.? We will arrange cardiac event monitor for him as he gets discharged.? He will be referred to electrophysiology as outpatient.? Currently he has NSVT and absence of syncope as presentation there is no clear indication to place an ICD.? Thank you for allowing me to participate in the care of your patient.? Please feel free to contact me if you have any questions. Fall Risk Details Current Medications: Current Medications Amiodarone HCl (Amiodarone Hcl 200 Mg Tablet) 400 mg PO BID [facility] Last Admin: 04/07/21 12:06 Dose: 400 mg Documented by: Apixaban (Apixaban 5 Mg Tablet) 5 mg PO BID [facility] Last Admin: 04/07/21 12:05 Dose: 5 mg Documented by: Atorvastatin Calcium (Atorvastatin Calcium 40 Mg Tablet) 40 mg PO BEDTIME [facility] Last Admin: 04/06/21 21:00 Dose: 40 mg Documented by: Lactated Ringer's (Lr) 1,000 mls @ 80 mls/hr IVCONT .[id number] [facility] Last Admin: 04/07/21 09:56 Dose: 80 mls/hr Documented by: Metoprolol Tartrate (Metoprolol Tartrate 25 Mg Tablet) 25 mg PO TID [facility]; Protocol Last Admin: 04/07/21 11:57 Dose: Not Given Documented by: Omeprazole (Omeprazole 20 Mg Capsule.Dr) 20 mg PO BEDTIME [facility] Last Admin: 04/06/21 21:00 Dose: 20 mg Documented by: Time Spent With Patient Time: Total time spent is greater than 50% in coordination of care (as documented) at patient's floor/unit and/or counseling patient: Time with patient: 15 - 24 minutes Progress Note: Quality Stroke Does the patient have a stroke diagnosis?: Yes Reason for No Anti-thrombotic by Day Two: N/A - Med Ordered Procedures Date of Service Date of Service: 04/07/21
--- NOTE | 2021-04-07 15:13 | PC.NURSE ---
Pt sister inquiring about discharge. When this RN asked MD, Md needs to see second portion of stress test and speak with cardiology prior to making discharge decision. IV infiltrated. MD requested IV be reinserted. Sister and pt not in agreement with this as thinking MD stated pt to be discharged. Dr Starr aware that he is requested to come speak with pt and sister. Made sister and pt aware that MD will be up to see them as soon as he has report. Verbalized understanding
[2021-04-07] MEDS: Metoprolol Tartrate 25 MG TABLET PO (15:43)
--- NOTE | 2021-04-07 15:47 | MHC.CM.PN ---
Patient has been medically cleared for dc to home today, with services. A referral was made to [facility] , who has been notified of today's dc. SHAZIA SHELDON delivered Eliquis coupon to Patient and addressed IMM with him.
--- NOTE | 2021-04-07 15:56 | P.DS_ITS ---
DS: Providers Provider Date of Service: 04/07/21 Date of admission: 04/02/21 11:02 Primary care physician: Yamilka Guallpa MD Consults: 04/02/21 19:25 Consult to Neurology Routine Consulting Provider: [facility] Reason for consultation: CVA, tPA given Has provider been notified: No 04/03/21 09:14 Consult to Cardiology Routine Consulting Provider: [facility] Reason for consultation: Asymptomatic arrythmia Has provider been notified: No DS: Diagnosis Discharge Diagnosis (1) Cerebrovascular accident: Status: Acute (2) Ventricular tachycardia: Status: Acute (3) Prerenal azotemia: Status: Acute DS: Summary Hospital Course Hospital Course: 71-year-old male nonhypertensive nondiabetic preparing for adventism this morning suddenly fell noted to have facial asymmetry left-sided weakness and was aphasic brought to the hospital within a good time frame work CT scan was negative and the case was discussed with Neurology In other words Dr. Blanchard and was decided to go ahead and give him tPA despite the minor head trauma There is a question of a left-sided field cut he has got the eye deviation towards the right left upper and left lower extremity weakness are are associated NIH score but at least 13 and by our approximation the no seems to be a fair sized territory yet on the CTA nothing was seen and tracing this all back down to the to the aortic root there is no evidence of of dissection Of course placed on the monitor and early asymptomatic we note that he is having prolonged runs of nonsustained ventricular tachycardia very frequently lasting up to approximately 6 seconds at a time with rates of about 150 give her take clearly the P-wave sequence marches through and there there is a fusion beat or 2 indicating that this is did indeed V-tach no chest discomfort is associated with any of this and a bedside echo that I had done shows globally normal systolic wall motion of the left ventricle without segmental wall motion abnormality and no primary valve or pericardial disease and his right heart appears to be normal as well He is not hypertrophic what needs to be ruled out of course is underlying ischemic disease but I do know if this is just simply serendipitous or if there is adeno truly some etiologic relationship appear between the nonsustained ventricular tachycardia and this CVA in evolution hospital course: cva -s/p tpa , Subsequently seen by brain doctor and started on blood thinner Eliquis for further stroke prevention. seen by Cardiology for nonsustained ventricular tachycardia.? Echocardiography has shown normal left ventricular ejection fraction with some concern for basal inferior wall motion abnormality.? We discussed about cardiac catheterization with the family but they are not agreeable.?Stress test is normal.? He has been on beta-sander and amiodarone.?will switch metoprolol can be changed to Toprol-XL.? Continue the amiodarone 400 mg twice a day load for at least 10-14 days.? After that he should be on 200 mg amiodarone.? We will arrange cardiac event monitor for him as he gets discharged.? He will be referred to electrophysiology as outpatient.? Currently he has NSVT and absence of syncope as presentation there is no clear indication to place an ICD.? Above was discussed in detail with patient and patient's family. Assessment and plan time spent 50 minute. Time Spent with Patient Time attestation: Total time spent providing and/or coordinating discharge services: Discharge coordination time: Greater than 30 minutes Quality: Stroke Does the patient have a stroke diagnosis?: Yes Reason for No Anti-thrombotic at DC: N/A - Med Ordered Reason for No Anticoagulant at DC: N/A - Med Ordered Reason Not Initiating IV-Tpa: N/A - Med Ordered Reason for No Anti-thrombotic by Day Two: N/A - Med Ordered Reason for No Statin at DC: N/A - Med Ordered Physical Exam Vital Signs: Vital Signs: Last Vital Signs Temp 98.5 F 04/07/21 10:55 Pulse 60 04/07/21 10:55 Resp 17 04/07/21 10:55 BP 148/79 H 04/07/21 10:55 Pulse Ox 94 04/07/21 10:55 BMI result Body Mass Index 31.2 Appearance: Alert.? Oriented X3.? not in distress.? Eyes: Pupils equal, round and reactive to light.? Sclera nonicteric.? ENT: Pharynx normal.? Moist mucous membranes. cvs: rrr, [id number] , no murmur res: clear to auscultation ,no rhonchii or wheezing abd: no rebound or guarding ,nt, bs present. ext pulses present , no cyanosis . neuro:alert and awake withs peech normal.? ?Visual field or probably intact.? There was minimal left-sided facial flatness.? moves all extermities , follows commands DS: Data Data Completed and Pending Labs on day of discharge: Laboratory Results - last 24 hr 04/07/21 10:58 POC Glucose 139 H Discharge Plan Discharge Patient Disposition: Home Health Service Discharge Diagnosis: cva, nsvt Referrals: [facility] QUINTANA [Outside] - 1 Week Yamilka Guallpa MD [Primary Care Provider] - 1 Week Discharge Medications: New amiodarone 200 mg Tablet 400 mg PO BID Qty: 56 0RF Eliquis 5 mg Tablet 5 mg PO BID Qty: 60 0RF atorvastatin 40 mg Tablet 40 mg PO BEDTIME Qty: 30 0RF metoprolol succinate [Toprol XL] 50 mg tablet extended release 24 hr 75 mg PO DAILY Qty: 45 0RF Continued finasteride 5 mg tablet 5 mg PO DAILY 90 Days Qty: 90 1RF Discontinued aspirin 81 mg Capsule 81 mg PO DAILY 0RF Discharge Orders: Discharge Order (Routine); Ordered 04/07/21 Ordered By: Vivi Starr Diet: advance to usual diet Activity on Discharge: As tolerated Stand Alone Forms: Patient Portal Discharge page Other Ambulatory Orders: Basic Metabolic Panel (Routine) Timeframe: 1 Week Facility: [facility] - Location: Laboratory Ordered By: Vivi Starr Care Plan Goals: cva -s/p tpa , Subsequently seen by brain doctor and started on blood thinner Eliquis for further stroke prevention. heart arrhythmia- seen by Cardiology-amiodarone load- 400 mg amiodarone By mouthtwice daily for 2 weeks and then switch to 200 mg daily afterwards. also continue toprol xl 75 mg daily. Patient stress test was done today seems normal as per Cardiology. Cardiology may arrange outpatient appointment if needed. mild dehydration: Patient was in encouraged to increase p.o. intake as well as hydration- monitor renal function and electrolytes with PCP on outpatient in 1 week. follow up with pcp in 1 week. Health Concerns: as above. Plan of Treatment: As above. Assessment: As above.
--- NOTE | 2021-04-07 16:00 | P.F2F_ITS ---
Service Date Service Date: 04/07/21 Encounter Date of encounter: 04/07/21 Encounter: cva , nsvt Reasons for Services Signs and symptoms assessed: patient came with stroke-like symptoms, also had NSVT. Reason for detention: medication management, medication treatment and teach disease management Reason for physical therapy: home safety and mobility, therapeutic exercises, restore joint function, gait/transfer training, assess need for DME, ADL training, energy conservation and other MD Overseeing Care: Yamilka Guallpa Homebound: Leaving the home is medically contraindicated at this time without the asist of a device and/or another person due th the listed conditions above and below. Reason homebound: weakness related to hospital stay Homebound supporting statement: Patient came with acute stroke, also found to be have NSVT: Patient generalized weak post hospitalisation and need help with going to appointments. Certification: Based on the above findings, I certify that this patient is confined to the home and needs intermittent detention care, physical therapy and/or speech therapy, or continues to need occupational therapy. The patient is under my care, and I have initiated the establishment of the plan of care. The patient will be followed by a physician who will periodically review the plan of care.
== END 2021-04-07 17:35 | disposition home health service (06) | DRG 62 ==
LOC: HO.ED 10:52 → HO.EDOVER 11:28 → HO.ICU 11:49 → HO.IMC 04-03 12:54
PROVIDERS: Internal Medicine; Internal Medicine Cardiovascular Disease; Physician Assistant; Admitting Provider Internal Medicine Cardiovascular Disease; Emergency Provider Emergency Medicine; PCP Internal Medicine; Visit Provider Internal Medicine
DX: I63.411 Cerebral infarction due to embolism of right middle cerebral artery (principal); G81.94 Hemiplegia, unspecified affecting left nondominant side; I47.2 Ventricular tachycardia; R47.01 Aphasia; R29.714 NIHSS score 14; E66.9 Obesity, unspecified; Z68.31 Body mass index [BMI] 31.0-31.9, adult; R29.810 Facial weakness; N40.0 Benign prostatic hyperplasia without lower urinary tract symptoms; Z20.822 Contact with and (suspected) exposure to COVID-19; Z87.891 Personal history of nicotine dependence; Z79.01 Long term (current) use of anticoagulants; Z79.899 Other long term (current) drug therapy
CPT/HCPCS: 36415; 70450; 70496; 70498; 70551; 71045; 72125; 78452; 80048; 80053; 80061; 82947; 83735; 84100; 84484; 85025; 85610; 85652; 85730; 87635; 92526; 92610; 93005; 93017; 93306; 97110; 97116; 97162; 97166; 97530; 97535; 99285; 99291; A9500; C1758; J0280; J2785; J2997; J3475; Q9967

== ENCOUNTER 2021-04-14 08:40 | Outpatient (REF) | payer OTHER, SELFPAY ==
[2021-04-14 12:06] LABS: Anion Gap 11 (12-20); Blood Urea Nitrogen 20 mg/dL (9-16); Calcium 9.3 mg/dL (8.4-10.2); Carbon Dioxide 29 mmol/L (22-29); Chloride 106 mmol/L (96-108); Estimated Glomerular Filt Rate 50; Glucose Random 108 mg/dL (60-115); Potassium 4.7 mmol/L (3.3-5.1); Sodium 141 mmol/L (135-145)
== END 2021-04-14 08:41 | disposition home or self-care (01) ==
LOC: HO.HMGCLDS 08:40
PROVIDERS: Visit Provider Internal Medicine
DX: R79.89 Other specified abnormal findings of blood chemistry (principal)
CPT/HCPCS: 36415; 80048

== ENCOUNTER 2021-05-09 08:19 | Outpatient (REF) | payer OTHER, SELFPAY ==
[2021-05-09 12:22] LABS: Alanine Aminotransferase 23 U/L (0-40); Albumin Level 4.1 g/dL (3.5-5.0); Alkaline Phosphatase 62 U/L (39-117); Anion Gap 13 (12-20); Aspartate Amino Transferase 15 U/L (5-37); Bilirubin Total 0.7 mg/dL (0.0-1.0); Blood Urea Nitrogen 16 mg/dL (9-16); Calcium 9.1 mg/dL (8.4-10.2); Carbon Dioxide 26 mmol/L (22-29); Chloride 107 mmol/L (96-108); Cholesterol 184 mg/dL; Estimated Glomerular Filt Rate 55; Glucose Fasting 117 mg/dL (60-99); HDL Cholesterol 28 mg/dL; LDL Cholesterol Calculated 133 mg/dl; Potassium 4.6 mmol/L (3.3-5.1); Sodium 141 mmol/L (135-145); Total Protein 6.9 g/dL (6.5-8.0); Triglycerides 117 mg/dL
== END 2021-05-09 08:20 | disposition home or self-care (01) ==
LOC: HO.HMGCLDS 08:19
PROVIDERS: PCP Internal Medicine; Visit Provider Internal Medicine
DX: I47.2 Ventricular tachycardia (principal); I63.9 Cerebral infarction, unspecified
CPT/HCPCS: 36415; 80053; 80061

== ENCOUNTER → 2021-05-12 10:46 | Outpatient (REF) | payer OTHER, SELFPAY ==
--- NOTE | 2021-05-12 10:50 | HM_ITS ---
Patient is a 71-year-old male. REQUESTING PROVIDER: Darwin Valdez MD REASON FOR TEST: Ventricular tachycardia. FINDINGS: I was requested to read this report on 07/14/2021. Patient was monitored from 05/12/2021 to 06/11/2021. Baseline rhythm, sinus bradycardia with heart rate going from 35 beats per minute to 52 beats per minute. There was first-degree AV block noted. Heart rate below 40 beats per minute was seen mostly during sleep hours and in the clinical project coordinator hours. There were no heart rate above 60 beats per minute noted. There were no significant pauses noted. There were rare isolated PVCs noted. There were no episodes of ventricular tachycardia. There were no patient reported symptoms. CONCLUSION: Event monitor is remarkable for: 1. Baseline sinus bradycardia with heart rate going from 35 beats per minute to 52 beats per minute. 2. Rare PVCs noted. 3. No patient reported events. Rai Mccullough MD NRS/MODL / [id number]
== END ==
LOC: HO.CARD 10:46
PROVIDERS: Visit Provider Internal Medicine Cardiovascular Disease
DX: I47.2 Ventricular tachycardia (principal)
CPT/HCPCS: 93270

== ENCOUNTER 2021-07-10 09:27 | Outpatient (REF) | payer OTHER, SELFPAY ==
[2021-07-10 11:49] LABS: Estimated Average Glucose 117 mg/dL; Hemoglobin A1c % 5.7 %
[2021-07-10 12:05] LABS: Alanine Aminotransferase 23 U/L (0-40); Albumin Level 4.1 g/dL (3.5-5.0); Alkaline Phosphatase 64 U/L (39-117); Anion Gap 9 (12-20); Aspartate Amino Transferase 16 U/L (5-37); Bilirubin Total 1.1 mg/dL (0.0-1.0); Blood Urea Nitrogen 22 mg/dL (9-16); Calcium 9.3 mg/dL (8.4-10.2); Carbon Dioxide 27 mmol/L (22-29); Chloride 109 mmol/L (96-108); Cholesterol 99 mg/dL; Estimated Glomerular Filt Rate 56; Glucose Fasting 108 mg/dL (60-99); HDL Cholesterol 30 mg/dL; LDL Cholesterol Calculated 56 mg/dl; Sodium 140 mmol/L (135-145); Total Protein 6.6 g/dL (6.5-8.0); Triglycerides 69 mg/dL
== END 2021-07-10 09:28 | disposition home or self-care (01) ==
LOC: HO.HMGCLDS 09:27
PROVIDERS: Visit Provider Internal Medicine
DX: I47.2 Ventricular tachycardia (principal); R73.9 Hyperglycemia, unspecified
CPT/HCPCS: 36415; 80053; 80061; 83036

== ENCOUNTER 2021-10-17 08:15 | Outpatient (REF) | payer OTHER, SELFPAY ==
[2021-10-17 11:51] LABS: Estimated Average Glucose 114 mg/dL; Hemoglobin A1c % 5.6 %
[2021-10-17 11:58] LABS: Alanine Aminotransferase 28 U/L (0-40); Alkaline Phosphatase 75 U/L (39-117); Anion Gap 12 (12-20); Aspartate Amino Transferase 18 U/L (5-37); Blood Urea Nitrogen 26 mg/dL (9-16); Calcium 8.6 mg/dL (8.4-10.2); Carbon Dioxide 25 mmol/L (22-29); Chloride 108 mmol/L (96-108); Cholesterol 103 mg/dL; Estimated Glomerular Filt Rate 56; Glucose Fasting 98 mg/dL (60-99); HDL Cholesterol 31 mg/dL; LDL Cholesterol Calculated 62 mg/dl; Potassium 4.4 mmol/L (3.3-5.1); Sodium 141 mmol/L (135-145); Total Protein 6.4 g/dL (6.5-8.0); Triglycerides 52 mg/dL
[2021-10-17 12:13] LABS: Prostate Specific Antigen Scr 6.36 ng/mL (<0.05-4.0)
== END 2021-10-17 08:16 | disposition home or self-care (01) ==
LOC: HO.HMGCLDS 08:15
PROVIDERS: PCP Internal Medicine; Visit Provider Internal Medicine
DX: N40.0 Benign prostatic hyperplasia without lower urinary tract symptoms (principal); R00.1 Bradycardia, unspecified; E78.5 Hyperlipidemia, unspecified; R73.9 Hyperglycemia, unspecified; Z12.5 Encounter for screening for malignant neoplasm of prostate
CPT/HCPCS: 36415; 80053; 80061; 83036; 84153

== ENCOUNTER 2022-04-06 09:02 | Outpatient (REF) | payer OTHER, SELFPAY ==
[2022-04-06 12:38] LABS: PSA,Total (Free>4and<10) 9.61 ng/mL (0.00-4.00)
[2022-04-09 11:03] LABS: Free Prostate Spec Ag 2.1 ng/mL; Percent Free Prostate Spec Ag 24 % (calc) (>25); Prostate Specific Ag Total 8.9 ng/mL (< OR = 4.0)
== END 2022-04-06 09:03 | disposition home or self-care (01) ==
LOC: HO.HMGCLDS 09:02
PROVIDERS: PCP Internal Medicine; Visit Provider Internal Medicine
DX: Z12.5 Encounter for screening for malignant neoplasm of prostate (principal); N13.8 Other obstructive and reflux uropathy; N40.1 Benign prostatic hyperplasia with lower urinary tract symptoms; R97.20 Elevated prostate specific antigen [PSA]
CPT/HCPCS: 36415; 84153; 84154

== ENCOUNTER 2023-06-10 07:46 | Outpatient (REF) | payer OTHER, SELFPAY ==
[2023-06-10 10:40] LABS: Hematocrit 47.4 % (42.0-52.0); Hemoglobin 15.6 g/dl (14.0-18.0); Mean Corpuscular HGB Conc 32.9 g/dl (31.0-36.0); Mean Corpuscular Hemoglobin 29.9 pg (27.0-33.0); Mean Platelet Volume 10.6 fL (9.4-12.4); Platelet Count 190 X10*3/uL (160-400); Red Blood Count 5.21 X10*6/uL (4.60-5.80); Red Cell Distribution Width 13.2 % (11.0-16.0); White Blood Count 10.9 X10*3/uL (4.8-10.8)
[2023-06-10 10:58] LABS: Alanine Aminotransferase 35 U/L (0-40); Albumin Level 4.1 g/dL (3.5-5.0); Alkaline Phosphatase 73 U/L (39-117); Anion Gap 11 (12-20); Aspartate Amino Transferase 25 U/L (5-37); Bilirubin Total 0.7 mg/dL (0.0-1.0); Blood Urea Nitrogen 15 mg/dL (9-16); Calcium 9.3 mg/dL (8.4-10.2); Carbon Dioxide 27 mmol/L (22-29); Chloride 105 mmol/L (96-108); Cholesterol 172 mg/dL (<200); Estimated Glomerular Filt Rate 53; Glucose Fasting 90 mg/dL (60-99); HDL Cholesterol 35 mg/dL (>40); LDL Cholesterol Calculated 110 mg/dL (<100); Sodium 139 mmol/L (135-145); Total Protein 7.3 g/dL (6.5-8.0); Triglycerides 136 mg/dL (<150)
[2023-06-10 11:10] LABS: Bacteria Urine None Seen (None Seen); Hyaline Casts Urine 0-2 /LPF (0-2); RBC Urine 0-2 /HPF (0-2); Squamous Epithelial Cell Urine 0-2 /HPF (0-2); WBC Urine 0-5 /HPF (0-5)
[2023-06-10 11:17] LABS: Atypical Lymphs Percent Manual 9 % (0-6); Band Neutrophils Percent 0 % (3-5); Eosinophils Absolute Manual 0.4 X10*3/uL (0.0-0.4); Eosinophils Percent Manual 4 % (0-4); Lymphocytes Percent Manual 55 % (20-40); Monocytes Absolute Manual 0.4 X10*3/uL (0.1-1.2); Monocytes Percent Manual 4 % (2-11); Neutrophils Absolute Manual 3.1 X10*3/uL (2.0-8.3); Neutrophils Percent Manual 28 % (45-73); PSA,Total (Free>4and<10) 9.06 ng/mL (0.00-4.00)
[2023-06-10 11:19] LABS: Platelet Estimate NORMAL (NORMAL); Platelet Morphology Comment NORMAL; RBC Morphology NORMAL; Smudge Cells PRESENT
[2023-06-10 11:25] LABS: Appearance Urine Clear; Color Urine Yellow; Glucose Urine UA Negative (Negative); Leukocyte Esterase Urine Negative (Negative); Nitrite Urine Negative (Negative); Specific Gravity - Urine 1.015 (1.005-1.025); Urine Blood Negative (Negative); Urine Ketones Negative (Negative); Urine Protein Negative (Neg-Trace)
[2023-06-11 11:08] LABS: Free Prostate Spec Ag 1.5 ng/mL; Percent Free Prostate Spec Ag 19 % (calc) (>25); Prostate Specific Ag Total 8.1 ng/mL (< OR = 4.0)
== END 2023-06-10 07:47 | disposition home or self-care (01) ==
LOC: HO.HMGCLDS 07:46
PROVIDERS: PCP Internal Medicine; Visit Provider Internal Medicine
DX: I10 Essential (primary) hypertension (principal); I48.91 Unspecified atrial fibrillation; R00.1 Bradycardia, unspecified; E78.5 Hyperlipidemia, unspecified; R97.20 Elevated prostate specific antigen [PSA]; Z12.5 Encounter for screening for malignant neoplasm of prostate
CPT/HCPCS: 36415; 80053; 80061; 81001; 84153; 84154; 85007; 85025; 85027

== ENCOUNTER 2023-06-12 14:09 | Outpatient (AMB) | payer SELFPAY ==
--- NOTE | 2023-06-12 14:14 | MHC.PC.OV ---
Vital Signs 06/12/23 14:15 Height 5 ft 9 in Weight 199 lb BMI 29.4 BP 136/80 Blood Pressure Location Lt brachial Position Sitting Pulse 61 Pulse Source Pulse Oximeter Pulse Oximetry (%) 96 Oxygen Delivery Method Room Air Intake Visit Reasons: Follow up Intake Note: Pt is here today for a follow up visit. Allergies No Known Allergies Allergy (Verified 06/12/23 14:15) Medication List - Last Reconciled 06/12/23 by Yamilka Guallpa MD amiodarone 200 mg PO DAILY apixaban (Eliquis) 5 mg PO BID atorvastatin 80 mg PO DAILY olmesartan 5 mg PO DAILY Tobacco use date assessed: 06/12/23 Fall risk assessment: No Falls in past year Last assessed Fall Risk: 06/12/23 Dental Screening Dental Screen Date: 06/12/23 Did you have a dental visit in the last 12 months?: No Did you have a dental problem in the last 6 months where you did not have access to dental care?: No Was dental information given to patient?: Patient declined HPI Follow up HPI Details Pt presents for f/u HTN, paroxysmal Afib, anemia stable on current medications. For elevated PSA patient declined seeing [facility] Medical History (Updated 06/12/23 @ 15:15 by Yamilka Guallpa MD) HTN (hypertension) Bradycardia Hyperlipidemia Hyperglycemia Elevated PSA Sciatica Annual physical exam Surgical History No pertinent past surgical history Family History Father No problems noted. Mother Stroke Brother Substance use disorder Brother Substance use disorder Sister Mental health disorder Social History Household Members: Family Housing: House Do you presently have visiting nurse or other home services: No Alcohol intake: current Alcohol intake frequency: holidays/special occasions only Patient Tobacco Use Status: Former Tobacco user Tobacco use type: Cigarette e-Cigarette/Vaping Use: Never Used service: No Current occupational status: retired Cognitive needs: No Hearing needs: No Vision needs: No Questionnaire PHQ-9 Over the last 2 weeks, how often have you been bothered by any of the following problems? 45542 - PHQ-9 Billing: Patient declined-do not bill Source: Developed by Drs. Perez Swan, Gaviota Rogers, Jomar Briggs and colleagues, with an educational lori from [employer]. Thrive Questionnaire Date Thrive assessed: 06/12/23 What is your living situation today?: I choose not to answer this question Within the past 12 months, did the food you bought not last and you didn't have the money to get more?: I choose not to answer this question Within the past 12 months, did you worry whether your food would run out before you got money to buy more?: I choose not to answer this question Do you have trouble paying for medicines?: I choose not to answer this question Do you have trouble getting transportation to medical appointments?: I choose not to answer this question Do you have trouble paying your heating and electricity bill?: I choose not to answer this question Do you have trouble taking care of your child, family member or friend?: I choose not to answer this question Do you have trouble with day-to-day activities such as bathing, preparing meals, shopping, managing finances, etc.?: I choose not to answer this question Are you currently unemployed and looking for a job?: I choose not to answer this question Are you interested in more education?: I choose not to answer this question Please select the resources that you would like help with: None Currently or been in a relationship where the following occur: I choose not to answer this question THRIVE Score: 0 AUDIT C Alcohol Use Questionnaire (AUDIT-C) 1. How often do you have a drink containing alcohol?: Never 3. How often do you have six or more drinks on one occasion?: Never Total Score: 0 JIM-7 AMB Questionnaire JIM-7 Date JIM - 7 assessed: 06/12/23 Source: Developed by Drs. Perez Swan, Gaviota Rogers, Jomar Briggs and colleagues, with an educational lori from [employer]. JIM-7 Assessment Billing JIM-7 Assessment Tool: pt declined-do not bill Review of Systems Const All systems reviewed & are unremarkable except as noted in HPI and below Reports no additional complaints Eyes Reports no additional complaints ENT Reports no additional complaints Card Reports no additional complaints Resp Reports no additional complaints GI Reports no additional complaints Physical exam (Primary Care) Vital Signs: Last Vital Signs Pulse 61 06/12/23 14:15 BP 136/80 06/12/23 14:15 Pulse Ox 96 06/12/23 14:15 Oxygen Delivery Method Room Air 06/12/23 14:15 BMI result Body Mass Index 29.4 Tobacco/Smoking Status: Tobacco use Status Tobacco use date assessed 06/12/23 06/12/23 14:15 Patient Tobacco Use Status Former Tobacco user 06/12/23 14:15 Tobacco use type Cigarette 06/12/23 14:15 e-Cigarette/Vaping Use Never Used 06/12/23 14:27 Thrive Assessment: Date of Thrive Assessment Date Thrive assessed 06/12/23 06/12/23 14:27 Currently or been in a relationship where the following occur: I choose not to answer this question Const General: no acute distress HENMT Head: Yes normal to inspection Throat: Yes posterior oropharynx normal Neck Neck: Yes supple Resp Effort & Inspection: normal respiratory effort Auscultation: clear to auscultation bilaterally Cardio Rhythm: regular rhythm Heart sounds: S1 normal heart sound present and S2 normal heart sound present GI Inspection: Yes normal to inspection Palpation (GI): Soft to palpation Percussion: Yes normal to percussion Auscultation: normal bowel sounds Assessment and Plan Assessment & Plan (1) A-fib: Code(s): I48.91 - Unspecified atrial fibrillation Plan: Continue amiodarone and Eliquis (2) HTN (hypertension): Code(s): I10 - Essential (primary) hypertension Plan: Continue olmesartan (3) Elevated PSA: Comment: Patient declined referral to urology 04/18, PSA 6.25 10/16, 9.61 04/19, pt is going back to [place] Code(s): R97.20 - Elevated prostate specific antigen [PSA] Plan: Monitor PSA (4) Hyperlipidemia: Code(s): E78.5 - Hyperlipidemia, unspecified Plan: Continue statin Medications: Refilled apixaban (Eliquis) 5 mg PO BID 180 tabs 3RF Coding Level of Care Code Est Pt Level 4 (79380) Diagnoses A-fib I48.91 HTN (hypertension) I10 Elevated PSA R97.20 Hyperlipidemia E78.5
[2023-06-12 14:15] VITALS: BP 136/80; PULSE 61; O2SAT 96; BMI 29.4
== END 2023-06-12 15:17 | disposition home or self-care (01) ==
LOC: HO.HMGC 14:09
PROVIDERS: PCP Internal Medicine; Visit Provider Internal Medicine
DX: I48.91 Unspecified atrial fibrillation (principal); I10 Essential (primary) hypertension; R97.20 Elevated prostate specific antigen [PSA]; E78.5 Hyperlipidemia, unspecified
CPT/HCPCS: 99214